=== PATIENT | male | born 1930 | race American Indian/Alaskan Native ===

== ENCOUNTER 2017-04-02 23:57 | Emergency (ER) | payer MEDICARE, OTHER ==
[2017-04-03 00:12] VITALS: BP 123/43
--- NOTE | 2017-04-04 09:22 | EKG ---
04/03/2017- YOKO CROWE - EKG per my reading shows sinus rhythm at a rate of 54 with lateral T-wave inversions. [facility] /[id number]
--- NOTE | 2017-04-25 05:20 | EDM.PDOC ---
ED HPI GENERAL MEDICAL PROBLEM - General Chief Complaint: Neurological Problem Stated Complaint: AMBULANCE Time Seen by Provider: 04/03/17 00:10 Source of Information: Reports: EMS, Family History Limitations: Reports: Altered Mental Status (ED via [facility] with report of left sided weakness . Report family doing CPR on arrival, patient was breathing on own and did have plulse. family noted patient slumped after meal and not talking. ) - History of Present Illness Onset: Today, Sudden Duration: Minutes: Location: Reports: Face (left) Left Shoulder Pain Score (Numeric/FACES): 10 - Related Data Allergies Allergy/AdvReac Type Severity Reaction Status Date / Time diphenhydramine Allergy Mild Confusion Verified 04/03/17 00:07 Home Meds: Home Meds Simvastatin 40 mg PO BEDTIME 10/04/13 [History] Albuterol [Ventolin HFA] 2 puff INH Q4H PRN 09/19/14 [History] Tamsulosin [Flomax] 0.4 mg PO DAILY 11/19/14 [History] Carvedilol [Coreg] 6.2 mg PO BIDMEALS 12/23/15 [History] Furosemide [Lasix] 20 mg PO BIDMEALS 12/23/15 [History] Albuterol [Proventil Neb Soln] 2.5 mg NEB Q6HRRT PRN 02/18/16 [History] Aspirin [Halfprin] 81 mg PO DAILY 02/18/16 [History] Spironolactone [Aldactone] 12.5 mg PO DAILY 02/18/16 [History] hydrALAZINE [Apresoline] 50 mg PO BID 06/25/16 [History] Hydrocodone/Acetaminophen [Hydrocodon-Acetaminophn 10-325] 1 tab PO Q4H PRN 09/19 [History] Loperamide [Imodium] 2 mg PO ASDIRECTED PRN 04/03/17 [History] Melatonin 5 mg PO DAILY PRN 04/03/17 [History] Multivit-Min/FA/Lycopen/Lutein [Centrum Silver Men Tablet] 1 each PO DAILY 04/03 [History] Warfarin Sodium [Coumadin] 3 mg PO DAILY 04/03/17 [History] traZODone HCl [Trazodone HCl] 50 mg PO QPM 04/03/17 [History] Past Medical History HEENT History: Reports: Cataract, Hard of Hearing, Impaired Vision, Other (See Below) Other HEENT History: WEARS CORRECTIVE LENSES; HEARING AIDE TO R SIDE; TOP DENTURE PLATE, BOTTOM PARTIAL Cardiovascular History: Reports: Bypass, CAD, Heart Failure, Heart Valve Replacement, High Cholesterol, Hypertension Other Cardiovascular History: AORTIC STENOSIS; MITRAL INSUFFICIENCY; TRICUSPID INSUFFICIENCY Respiratory History: Reports: Asthma Gastrointestinal History: Reports: Colon Polyp, Diverticulosis, GERD Other Gastrointestinal History: HYPERMOTILITY OF INTESTINE Genitourinary History: Reports: BPH, Chronic Renal Insuffiency, Urinary Incontinence Other Genitourinary History: STAGE III Musculoskeletal History: Reports: Osteoarthritis Other Musculoskeletal History: CARPAL TUNNEL SYNDROME BILAT Neurological History: Reports: TIA Other Neuro History: head bleed s/p fall; DYSPHAGIA Psychiatric History: Reports: Depression Endocrine/Metabolic History: Reports: None Hematologic History: Reports: Anemia, Blood Transfusion(s), Iron Deficiency Other Hematologic History: ANTICOAGULATION MONITORING; MICROALBUMINURIA; HYPERKALEMIA Immunologic History: Reports: None Oncologic (Cancer) History: Reports: Colon Dermatologic History: Reports: None - Infectious Disease History Infectious Disease History: Reports: None - Past Surgical History Head Surgeries/Procedures: Reports: None HEENT Surgical History: Reports: Oral Surgery Cardiovascular Surgical History: Reports: Carotid Endarterectomy, Coronary Artery Bypass, Valve Replacement Respiratory Surgical History: Reports: Tracheostomy GI Surgical History: Reports: Colon, Colonoscopy, Colostomy Musculoskeletal Surgical History: Reports: Shoulder Surgery Social & Family History - Family History HEENT: Reports: Cataract, Glaucoma Cardiac: Reports: Hypertension Musculoskeletal: Reports: Arthritis, Back pain, Chronic Neurological: Reports: CVA Psychiatric: Reports: Other (See Below) Other Psychiatric Family History: ALCOHOLISM Endocrine/Metabolic: Reports: Diabetes, type II Oncologic: Reports: Brain, Lung - Tobacco Use Smoking Status *Q: Current Every Day Smoker Years of Tobacco use: 30 Packs/Tins Daily: 0.5 Used Tobacco, but Quit: Yes Month Tobacco Last Used: 09/14/13 Second Hand Smoke Exposure: No - Caffeine Use Caffeine Use: Reports: Coffee, Soda - Alcohol Use Days Per Week of Alcohol Use: 1 Number of Drinks Per Day: 2 Total Drinks Per Week: 2 - Recreational Drug Use Recreational Drug Use: No - Living Situation & Occupation Living situation: Reports: , with Spouse Occupation: Retired ED ROS GENERAL - Review of Systems Review Of Systems: See Below Constitutional: Reports: Weakness (leftby EMS) HEENT: Reports: No Symptoms Respiratory: Reports: No Symptoms Cardiovascular: Reports: No Symptoms Endocrine: Reports: No Symptoms GI/Abdominal: Reports: No Symptoms Musculoskeletal: Reports: Shoulder Pain Skin: Reports: Lesions (skin tear) Neurological: Reports: Syncope, Weakness (left side) ED EXAM, NEURO - Physical Exam Exam: See Below Exam Limited By: No Limitations General Appearance: Alert Eye Exam: Bilateral Eye: EOMI, Normal Inspection Nose: Normal Inspection Throat/Mouth: Normal Inspection Head Exam: Atraumatic, Normocephalic Neck: Normal Inspection, Full Range of Motion Respiratory/Chest: No Respiratory Distress, Decreased Breath Sounds (shallow), Crackles (bilbaselar) GI/Abdominal: Soft Neurological: Alert, Other (left facial droop on admission, movess all extremities, equal strenght bilaterally). No: Oriented x 3 (person place only ) Back Exam: Normal Inspection Skin Exam: Warm, Dry, Normal Color, Wound/Incision (superficial skin tear to left elbow). No: Intact Course - Vital Signs Last Recorded V/S: Last Vital Signs Temp 96.3 F 04/03/17 00:07 Pulse 56 L 04/03/17 00:07 Resp 18 04/03/17 00:07 BP 123/43 L 04/03/17 00:07 Pulse Ox 91 L 04/03/17 00:07 - Orders/Labs/Meds Labs: Laboratory Tests 04/03/17 04/03/17 04/03/17 Range/Units 00:25 00:25 00:25 WBC 5.9 (5.0-10.0) 10^3/uL RBC 3.42 L (4.6-6.2) 10^6/uL Hgb 9.8 L (14.0-18.0) g/dL Hct 30.9 L (40.0-54.0) % MCV 90.4 (80-100) fL MCH 28.7 (27.0-34.0) pg MCHC 31.7 L (33.0-35.0) g/dL Plt Count 136 L (150-450) 10^3/uL Neut % (Auto) 67.1 (42.2-75.2) % Lymph % (Auto) 17.7 L (20.5-50.1) % [place] % (Auto) 9.7 H (2-8) % Eos % (Auto) 5.3 H (1.0-3.0) % Baso % (Auto) 0.2 (0.0-1.0) % PT 20.1 H (9.0-12.0) SEC INR 2.0 H (0.9-1.2) Sodium 137 (135-145) mmol/L Potassium 3.3 L (3.6-5.0) mmol/L Chloride 103 (101-111) mmol/L Carbon Dioxide 24.0 (21.0-31.0) mmol/L Anion Gap 13.3 BUN 21 H (7-18) mg/dL Creatinine 1.6 H (0.6-1.3) mg/dL Est Cr Clr Drug Dosing 30.41 mL/min Estimated GFR (MDRD) 41 BUN/Creatinine Ratio 13.12 Glucose 121 H (74-105) mg/dL Lactic Acid (0.5-2.2) mmol/L Calcium 8.1 L (8.4-10.2) mg/dl Total Bilirubin 0.6 (0.2-1.0) mg/dL AST 44 H (10-42) IU/L ALT 19 (10-60) IU/L Alkaline Phosphatase 88 (42-121) IU/L CK-MB (CK-2) (0.4-4.7) ng/mL Troponin I 1.83 H* (0.00-0.02) ng/ml B-Natriuretic Peptide (0-100) pg/ml Total Protein 6.4 L (6.7-8.2) g/dl Albumin 3.1 L (3.2-5.5) g/dl Globulin 3.3 Albumin/Globulin Ratio 0.94 Amylase 41 (28-100) U/L Lipase 24 (22-51) U/L Urine Color (YELLOW) Urine Appearance (CLEAR) Urine pH (5.0-9.0) Ur Specific [place] (1.005-1.030) Urine Protein (NEGATIVE) Urine Glucose (UA) (NEGATIVE) Urine Ketones (NEGATIVE) Urine Occult Blood (NEGATIVE) Urine Nitrite (NEGATIVE) Urine Bilirubin (NEGATIVE) Urine Urobilinogen (0.2-1.0) mg/dL Ur Leukocyte Esterase (NEGATIVE) Urine RBC /HPF Urine WBC (0-5/HPF) /HPF Ur Epithelial Cells /HPF Urine Bacteria (0-FEW/HPF) /HPF 04/03/17 04/03/17 04/03/17 Range/Units 00:25 00:25 00:25 WBC (5.0-10.0) 10^3/uL RBC (4.6-6.2) 10^6/uL Hgb (14.0-18.0) g/dL Hct (40.0-54.0) % MCV (80-100) fL MCH (27.0-34.0) pg MCHC (33.0-35.0) g/dL Plt Count (150-450) 10^3/uL Neut % (Auto) (42.2-75.2) % Lymph % (Auto) (20.5-50.1) % [place] % (Auto) (2-8) % Eos % (Auto) (1.0-3.0) % Baso % (Auto) (0.0-1.0) % PT (9.0-12.0) SEC INR (0.9-1.2) Sodium (135-145) mmol/L Potassium (3.6-5.0) mmol/L Chloride (101-111) mmol/L Carbon Dioxide (21.0-31.0) mmol/L Anion Gap BUN (7-18) mg/dL Creatinine (0.6-1.3) mg/dL Est Cr Clr Drug Dosing mL/min Estimated GFR (MDRD) BUN/Creatinine Ratio Glucose (74-105) mg/dL Lactic Acid 1.1 (0.5-2.2) mmol/L Calcium (8.4-10.2) mg/dl Total Bilirubin (0.2-1.0) mg/dL AST (10-42) IU/L ALT (10-60) IU/L Alkaline Phosphatase (42-121) IU/L CK-MB (CK-2) 6.00 H (0.4-4.7) ng/mL Troponin I (0.00-0.02) ng/ml B-Natriuretic Peptide 547 H (0-100) pg/ml Total Protein (6.7-8.2) g/dl Albumin (3.2-5.5) g/dl Globulin Albumin/Globulin Ratio Amylase (28-100) U/L Lipase (22-51) U/L Urine Color (YELLOW) Urine Appearance (CLEAR) Urine pH (5.0-9.0) Ur Specific [place] (1.005-1.030) Urine Protein (NEGATIVE) Urine Glucose (UA) (NEGATIVE) Urine Ketones (NEGATIVE) Urine Occult Blood (NEGATIVE) Urine Nitrite (NEGATIVE) Urine Bilirubin (NEGATIVE) Urine Urobilinogen (0.2-1.0) mg/dL Ur Leukocyte Esterase (NEGATIVE) Urine RBC /HPF Urine WBC (0-5/HPF) /HPF Ur Epithelial Cells /HPF Urine Bacteria (0-FEW/HPF) /HPF 04/03/17 Range/Units 01:26 WBC (5.0-10.0) 10^3/uL RBC (4.6-6.2) 10^6/uL Hgb (14.0-18.0) g/dL Hct (40.0-54.0) % MCV (80-100) fL MCH (27.0-34.0) pg MCHC (33.0-35.0) g/dL Plt Count (150-450) 10^3/uL Neut % (Auto) (42.2-75.2) % Lymph % (Auto) (20.5-50.1) % [place] % (Auto) (2-8) % Eos % (Auto) (1.0-3.0) % Baso % (Auto) (0.0-1.0) % PT (9.0-12.0) SEC INR (0.9-1.2) Sodium (135-145) mmol/L Potassium (3.6-5.0) mmol/L Chloride (101-111) mmol/L Carbon Dioxide (21.0-31.0) mmol/L Anion Gap BUN (7-18) mg/dL Creatinine (0.6-1.3) mg/dL Est Cr Clr Drug Dosing mL/min Estimated GFR (MDRD) BUN/Creatinine Ratio Glucose (74-105) mg/dL Lactic Acid (0.5-2.2) mmol/L Calcium (8.4-10.2) mg/dl Total Bilirubin (0.2-1.0) mg/dL AST (10-42) IU/L ALT (10-60) IU/L Alkaline Phosphatase (42-121) IU/L CK-MB (CK-2) (0.4-4.7) ng/mL Troponin I (0.00-0.02) ng/ml B-Natriuretic Peptide (0-100) pg/ml Total Protein (6.7-8.2) g/dl Albumin (3.2-5.5) g/dl Globulin Albumin/Globulin Ratio Amylase (28-100) U/L Lipase (22-51) U/L Urine Color Yellow (YELLOW) Urine Appearance Clear (CLEAR) Urine pH 6.0 (5.0-9.0) Ur Specific [place] 1.015 (1.005-1.030) Urine Protein 100 H (NEGATIVE) Urine Glucose (UA) Negative (NEGATIVE) Urine Ketones Negative (NEGATIVE) Urine Occult Blood Negative (NEGATIVE) Urine Nitrite Negative (NEGATIVE) Urine Bilirubin Negative (NEGATIVE) Urine Urobilinogen 0.2 (0.2-1.0) mg/dL Ur Leukocyte Esterase Negative (NEGATIVE) Urine RBC 0-5 /HPF Urine WBC 0-5 (0-5/HPF) /HPF Ur Epithelial Cells Few /HPF Urine Bacteria Few (0-FEW/HPF) /HPF - Radiology Interpretation Free Text/Narrative:: CXR ild pulmonary edema, CT head negative for acute process Departure - Departure Time of Disposition: 02:00 Disposition: DC/Tfer to Acute Hospital 02 Condition: Undetermined Clinical Impression: Acute [id number] myocardial infarction, Elevated troponin, Elevated brain natriuretic peptide (BNP) level, CKD (chronic kidney disease) stage 3, GFR 30-59 ml/min, Skin tear, Hypokalemia Acute CHF (congestive heart failure) Qualifiers: Congestive heart failure type: systolic Qualified Code(s): I50.21 - Acute systolic (congestive) heart failure - Discharge Information Forms: ED Department Discharge
== END 2017-04-03 01:58 ==
LOC: DL.ED 23:57
DX: I21.4 Non-ST elevation (NSTEMI) myocardial infarction (principal); I13.0 Hypertensive heart and chronic kidney disease with heart failure and stage 1 through stage 4 chronic kidney disease, or unspecified chronic kidney disease; I50.21 Acute systolic (congestive) heart failure; N18.3 Chronic kidney disease, stage 3 (moderate); E87.6 Hypokalemia; R79.89 Other specified abnormal findings of blood chemistry; H54.7 Unspecified visual loss; Z95.1 Presence of aortocoronary bypass graft; I25.10 Atherosclerotic heart disease of native coronary artery without angina pectoris; K21.9 Gastro-esophageal reflux disease without esophagitis; J45.909 Unspecified asthma, uncomplicated; F17.210 Nicotine dependence, cigarettes, uncomplicated; F32.9 Major depressive disorder, single episode, unspecified; Z86.2 Personal history of diseases of the blood and blood-forming organs and certain disorders involving the immune mechanism; Z98.890 Other specified postprocedural states; Z90.49 Acquired absence of other specified parts of digestive tract; Z88.8 Allergy status to other drugs, medicaments and biological substances; Z79.899 Other long term (current) drug therapy
CPT/HCPCS: 36415; 70450; 71010; 80053; 81001; 82150; 82553; 83605; 83690; 83880; 84484; 85025; 85610; 93005; 93010; 99285

== ENCOUNTER 2017-05-10 18:18 | Emergency (ER) | payer MEDICARE, OTHER ==
[2017-05-10] MEDS ORDERED: Sodium Chloride 0.9% 10 ML Syringe FLUSH PRN (18:44)
[2017-05-10 18:47] VITALS: BP 137/58
--- NOTE | 2017-05-10 19:38 | EDM.PDOC ---
ED HPI GENERAL MEDICAL PROBLEM - General Chief Complaint: Respiratory Problem Stated Complaint: WEAK,COUGHING,SOB, [id number] Time Seen by Provider: 05/10/17 19:25 Source of Information: Reports: Patient History Limitations: Reports: No Limitations - History of Present Illness INITIAL COMMENTS - FREE TEXT/NARRATIVE: This 86 yo male patient was brought to the ED by family due to not feeling well. When the patient was asked what brought him to the ED, the patient responded "everything". Follow-up questions revealed that the patient has a headache and feels tired. The patient was seen by Dr. Terrell yesterday for similar symptoms and the patient was seen in the clinic last week and diagnosed with pneumonia. The patient reports he has been taking the antibiotics as prescribed, but continues to feel sick. Onset Date: 05/02/17 Duration: Constant Location: Reports: Generalized Quality: Reports: Dull Severity: Moderate Improves with: Reports: None Worsens with: Reports: None Associated Symptoms: Reports: Cough, Other (headache) Treatments LOCAL COORDINATOR: Reports: Other Medication(s) (Meherrin, Tramadol, Prometh with codeine, Doxycycline) - Related Data Allergies Allergy/AdvReac Type Severity Reaction Status Date / Time diphenhydramine Allergy Mild Confusion Verified 05/10/17 18:37 Home Meds: Home Meds Simvastatin 40 mg PO BEDTIME 10/04/13 [History] Albuterol [Ventolin HFA] 2 puff INH Q4H PRN 09/19/14 [History] Tamsulosin [Flomax] 0.4 mg PO DAILY 11/19/14 [History] Carvedilol [Coreg] 6.2 mg PO BIDMEALS 12/23/15 [History] Furosemide [Lasix] 20 mg PO BIDMEALS 12/23/15 [History] Albuterol [Proventil Neb Soln] 2.5 mg NEB Q6HRRT PRN 02/18/16 [History] Aspirin [Halfprin] 81 mg PO DAILY 02/18/16 [History] Spironolactone [Aldactone] 12.5 mg PO DAILY 02/18/16 [History] hydrALAZINE [Apresoline] 50 mg PO BID 06/25/16 [History] Hydrocodone/Acetaminophen [Hydrocodon-Acetaminophn 10-325] 1 tab PO Q4H PRN 09/19 [History] Loperamide [Imodium] 2 mg PO ASDIRECTED PRN 04/03/17 [History] Melatonin 5 mg PO DAILY PRN 04/03/17 [History] Multivit-Min/FA/Lycopen/Lutein [Centrum Silver Men Tablet] 1 each PO DAILY 04/03 [History] Warfarin Sodium [Coumadin] 3 mg PO DAILY 04/03/17 [History] traZODone HCl [Trazodone HCl] 50 mg PO QPM 04/03/17 [History] Past Medical History HEENT History: Reports: Cataract, Hard of Hearing, Impaired Vision, Other (See Below) Other HEENT History: WEARS CORRECTIVE LENSES; HEARING AIDE TO R SIDE; TOP DENTURE PLATE, BOTTOM PARTIAL Cardiovascular History: Reports: Bypass, CAD, Heart Failure, Heart Valve Replacement, High Cholesterol, Hypertension, Pacemaker Other Cardiovascular History: AORTIC STENOSIS; MITRAL INSUFFICIENCY; TRICUSPID INSUFFICIENCY Respiratory History: Reports: Asthma, Pneumonia, Recurrent Gastrointestinal History: Reports: Colon Polyp, Diverticulosis, GERD Other Gastrointestinal History: HYPERMOTILITY OF INTESTINE Genitourinary History: Reports: BPH, Chronic Renal Insuffiency, Urinary Incontinence Other Genitourinary History: STAGE III Musculoskeletal History: Reports: Osteoarthritis Other Musculoskeletal History: CARPAL TUNNEL SYNDROME BILAT Neurological History: Reports: TIA Other Neuro History: head bleed s/p fall; DYSPHAGIA Psychiatric History: Reports: Depression Endocrine/Metabolic History: Reports: None Hematologic History: Reports: Anemia, Blood Transfusion(s), Iron Deficiency Other Hematologic History: ANTICOAGULATION MONITORING; MICROALBUMINURIA; HYPERKALEMIA Immunologic History: Reports: None Oncologic (Cancer) History: Reports: Colon Dermatologic History: Reports: None - Infectious Disease History Infectious Disease History: Reports: None - Past Surgical History Head Surgeries/Procedures: Reports: None HEENT Surgical History: Reports: Oral Surgery Cardiovascular Surgical History: Reports: Carotid Endarterectomy, Coronary Artery Bypass, Valve Replacement Respiratory Surgical History: Reports: Tracheostomy GI Surgical History: Reports: Colon, Colonoscopy, Colostomy Musculoskeletal Surgical History: Reports: Shoulder Surgery Social & Family History - Family History Family Medical History: Noncontributory HEENT: Reports: Cataract, Glaucoma Cardiac: Reports: Hypertension Musculoskeletal: Reports: Arthritis, Back pain, Chronic Neurological: Reports: CVA Psychiatric: Reports: Other (See Below) Other Psychiatric Family History: ALCOHOLISM Endocrine/Metabolic: Reports: Diabetes, type II Oncologic: Reports: Brain, Lung - Tobacco Use Smoking Status *Q: Current Every Day Smoker Years of Tobacco use: 20 Packs/Tins Daily: 1 Used Tobacco, but Quit: Yes Month Tobacco Last Used: 09/14/13 Second Hand Smoke Exposure: No - Caffeine Use Caffeine Use: Reports: None - Alcohol Use Days Per Week of Alcohol Use: 1 Number of Drinks Per Day: 2 Total Drinks Per Week: 2 - Recreational Drug Use Recreational Drug Use: No - Living Situation & Occupation Living situation: Reports: , with Spouse Occupation: Retired ED ROS GENERAL - Review of Systems Review Of Systems: ROS reveals no pertinent complaints other than HPI. ED EXAM, GENERAL - Physical Exam Exam: See Below Exam Limited By: No Limitations General Appearance: Alert, WD/WN, Moderate Distress Eye Exam: Bilateral Eye: EOMI, Normal Inspection, PERRL Ears: Normal External Exam, Normal Canal, Hearing Grossly Normal, Normal TMs Nose: Normal Inspection, Normal Mucosa, No Blood Throat/Mouth: Normal Inspection, Normal Lips, Normal Teeth, Normal Gums, Normal Oropharynx, Normal Voice, No Airway Compromise Head: Atraumatic, Normocephalic Neck: Normal Inspection, Supple, Non-Tender, Full Range of Motion Respiratory/Chest: No Respiratory Distress, Chest Non-Tender, Decreased Breath Sounds (due to lack of effort) Cardiovascular: Normal Peripheral Pulses, Regular Rate, Rhythm, No Edema, No Gallop, No JVD, No Murmur, No Rub GI/Abdominal: Normal Bowel Sounds, Soft, Non-Tender, No Organomegaly, No Distention, No Abnormal Bruit, No Mass (Male) Exam: Deferred Rectal (Males) Exam: Deferred Back Exam: Normal Inspection, Full Range of Motion, NT Extremities: Normal Inspection, Normal Range of Motion, Non-Tender, Normal Capillary Refill, No Pedal Edema Neurological: Alert, Oriented, CN II-XII Intact, Normal Cognition, Normal Gait, Normal Reflexes, No Motor/Sensory Deficits Psychiatric: Depressed Mood, Flat Affect Skin Exam: Warm, Dry, Intact, Normal Color, No Rash Lymphatic: No Adenopathy Course - Vital Signs Last Recorded V/S: Last Vital Signs Temp 36.3 C 05/10/17 18:41 Pulse 69 05/10/17 18:41 Resp 16 05/10/17 18:41 BP 137/58 L 05/10/17 18:41 Pulse Ox 98 05/10/17 18:41 - Orders/Labs/Meds Orders: Active Orders 24 hr Category Date Time Status EKG Documentation Completion [RC] STAT Care 05/10/17 18:45 Active Peripheral IV Care [RC] . DIRECTED Care 05/10/17 18:46 Active CULTURE BLOOD [BC] Stat Lab 05/10/17 18:55 Results CULTURE BLOOD [BC] Stat Lab 05/10/17 19:00 Results [facility] [REF] Urgent Lab 05/10/17 20:07 Ordered Sodium Chloride 0.9% [Normal Saline] 500 ml Med 05/10/17 19:50 Active IV .BOLUS Sodium Chloride 0.9% [Saline Flush] Med 05/10/17 18:44 Active 10 ml FLUSH ASDIRECTED PRN Blood Culture x2 Reflex Set [OM.PC] Stat Oth 05/10/17 18:45 Ordered Peripheral IV Insertion Adult [OM.PC] Stat Oth 05/10/17 18:45 Ordered Medication Orders Sodium Chloride (Normal Saline) 500 mls @ 999 mls/hr IV .BOLUS NADINE Last Admin: 05/10/17 20:01 Dose: 999 mls/hr Sodium Chloride (Saline Flush) 10 ml FLUSH ASDIRECTED PRN PRN Reason: Keep Vein Open Last Admin: 05/10/17 20:19 Dose: 10 ml Labs: Laboratory Tests 05/10/17 05/10/17 05/10/17 Range/Units 19:00 19:00 19:00 WBC 6.6 (5.0-10.0) 10^3/uL RBC 3.97 L (4.6-6.2) 10^6/uL Hgb 11.8 L (14.0-18.0) g/dL Hct 35.1 L (40.0-54.0) % MCV 88.4 (80-100) fL MCH 29.7 (27.0-34.0) pg MCHC 33.6 (33.0-35.0) g/dL Plt Count 179 (150-450) 10^3/uL Neut % (Auto) 65.2 (42.2-75.2) % Lymph % (Auto) 21.7 (20.5-50.1) % [place] % (Auto) 10.8 H (2-8) % Eos % (Auto) 2.1 (1.0-3.0) % Baso % (Auto) 0.2 (0.0-1.0) % Sodium 134 L (135-145) mmol/L Potassium 3.5 L (3.6-5.0) mmol/L Chloride 98 L (101-111) mmol/L Carbon Dioxide 22.0 (21.0-31.0) mmol/L Anion Gap 17.5 BUN 45 H (7-18) mg/dL Creatinine 2.2 H (0.6-1.3) mg/dL Est Cr Clr Drug Dosing 22.01 mL/min Estimated GFR (MDRD) 28 BUN/Creatinine Ratio 20.45 Glucose 91 (74-105) mg/dL Lactic Acid 0.9 (0.5-2.2) mmol/L Calcium 8.8 (8.4-10.2) mg/dl Total Bilirubin 0.9 (0.2-1.0) mg/dL AST 54 H (10-42) IU/L ALT 29 (10-60) IU/L Alkaline Phosphatase 109 (42-121) IU/L Total Protein 6.5 L (6.7-8.2) g/dl Albumin 3.2 (3.2-5.5) g/dl Globulin 3.3 Albumin/Globulin Ratio 0.97 Urine Color (YELLOW) Urine Appearance (CLEAR) Urine pH (5.0-9.0) Ur Specific [place] (1.005-1.030) Urine Protein (NEGATIVE) Urine Glucose (UA) (NEGATIVE) Urine Ketones (NEGATIVE) Urine Occult Blood (NEGATIVE) Urine Nitrite (NEGATIVE) Urine Bilirubin (NEGATIVE) Urine Urobilinogen (0.2-1.0) mg/dL Ur Leukocyte Esterase (NEGATIVE) Urine RBC /HPF Urine WBC (0-5/HPF) /HPF Ur Epithelial Cells /HPF Amorphous Sediment (0/HPF) /HPF Urine Bacteria (0-FEW/HPF) /HPF 05/10/17 Range/Units 19:50 WBC (5.0-10.0) 10^3/uL RBC (4.6-6.2) 10^6/uL Hgb (14.0-18.0) g/dL Hct (40.0-54.0) % MCV (80-100) fL MCH (27.0-34.0) pg MCHC (33.0-35.0) g/dL Plt Count (150-450) 10^3/uL Neut % (Auto) (42.2-75.2) % Lymph % (Auto) (20.5-50.1) % [place] % (Auto) (2-8) % Eos % (Auto) (1.0-3.0) % Baso % (Auto) (0.0-1.0) % Sodium (135-145) mmol/L Potassium (3.6-5.0) mmol/L Chloride (101-111) mmol/L Carbon Dioxide (21.0-31.0) mmol/L Anion Gap BUN (7-18) mg/dL Creatinine (0.6-1.3) mg/dL Est Cr Clr Drug Dosing mL/min Estimated GFR (MDRD) BUN/Creatinine Ratio Glucose (74-105) mg/dL Lactic Acid (0.5-2.2) mmol/L Calcium (8.4-10.2) mg/dl Total Bilirubin (0.2-1.0) mg/dL AST (10-42) IU/L ALT (10-60) IU/L Alkaline Phosphatase (42-121) IU/L Total Protein (6.7-8.2) g/dl Albumin (3.2-5.5) g/dl Globulin Albumin/Globulin Ratio Urine Color Yellow (YELLOW) Urine Appearance Clear (CLEAR) Urine pH 5.0 (5.0-9.0) Ur Specific [place] <= 1.005 (1.005-1.030) Urine Protein Negative (NEGATIVE) Urine Glucose (UA) Negative (NEGATIVE) Urine Ketones Negative (NEGATIVE) Urine Occult Blood Negative (NEGATIVE) Urine Nitrite Negative (NEGATIVE) Urine Bilirubin Negative (NEGATIVE) Urine Urobilinogen 0.2 (0.2-1.0) mg/dL Ur Leukocyte Esterase Negative (NEGATIVE) Urine RBC Not seen /HPF Urine WBC 0-5 (0-5/HPF) /HPF Ur Epithelial Cells Rare /HPF Amorphous Sediment Few (0/HPF) /HPF Urine Bacteria Few (0-FEW/HPF) /HPF Meds: Medications Generic Name Dose Route Start Last Admin Trade Name Freq PRN Reason Stop Dose Admin Sodium Chloride 500 mls @ 999 mls/hr 05/10/17 19:50 05/10/17 20:01 Normal Saline IV 999 mls/hr .BOLUS NADINE Administration Sodium Chloride 10 ml 05/10/17 18:44 05/10/17 20:19 Saline Flush FLUSH 10 ml ASDIRECTED PRN Administration Keep Vein Open Discontinued Medications Generic Name Dose Route Start Last Admin Trade Name Venu PRN Reason Stop Dose Admin Methylprednisolone Sodium Succinate 40 mg 05/10/17 20:04 05/10/17 20:11 Solu-Medrol IVPUSH 05/10/17 20:05 40 mg ONETIME ONE Administration Departure - Departure Time of Disposition: 21:07 Disposition: Home, Self-Care 01 Condition: Fair Clinical Impression: Generalized weakness - Discharge Information Forms: ED Department Discharge Care Plan Goals: The patient and family were advised of the examination, lab and x-ray results during the visit. The patient was given IV fluids and IV SoluMedrol while in the ED. The patient was encouraged to eat small frequent meals on a regular basis to increase his strength. If the patient has any additional symptoms or concerns, the patient should follow-up with with his primary care facility or return to the emergency department. - My Orders Last 24 Hours: My Active Orders 05/10/17 19:50 Sodium Chloride 0.9% [Normal Saline] 500 ml IV .BOLUS 05/10/17 20:07 [facility] [REF] Urgent - Assessment/Plan Last 24 Hours: My Active Orders 05/10/17 19:50 Sodium Chloride 0.9% [Normal Saline] 500 ml IV .BOLUS 05/10/17 20:07 [facility] [REF] Urgent
[2017-05-10] MEDS ORDERED: Sodium Chloride 0.9% 500 ML IV SCH (19:50)
[2017-05-10] MEDS ORDERED: methylPREDNISolone Sodium Succinate 40 MG/1 ML SDV IVPUSH ONE (20:04)
--- NOTE | 2017-05-13 13:10 | EKG ---
05/10/2017 - YOKO CROWE - A 12-lead EKG shows normal sinus rhythm with no significant ST elevation or ST depression noted on this 12-lead EKG, except for nonspecific T-wave changes noted on lead aVL. Evidence of first-degree AV block with the [place] interval of 220. [facility] /[id number]
== END 2017-05-10 21:29 | disposition home or self-care (01) ==
LOC: DL.ED 18:18
DX: R53.1 Weakness (principal); I25.10 Atherosclerotic heart disease of native coronary artery without angina pectoris; I13.0 Hypertensive heart and chronic kidney disease with heart failure and stage 1 through stage 4 chronic kidney disease, or unspecified chronic kidney disease; N18.3 Chronic kidney disease, stage 3 (moderate); I50.9 Heart failure, unspecified; M19.90 Unspecified osteoarthritis, unspecified site; F17.210 Nicotine dependence, cigarettes, uncomplicated; Z86.73 Personal history of transient ischemic attack (TIA), and cerebral infarction without residual deficits; Z86.2 Personal history of diseases of the blood and blood-forming organs and certain disorders involving the immune mechanism; Z98.890 Other specified postprocedural states; Z95.1 Presence of aortocoronary bypass graft; Z88.8 Allergy status to other drugs, medicaments and biological substances; Z79.899 Other long term (current) drug therapy; Z95.5 Presence of coronary angioplasty implant and graft; Z79.01 Long term (current) use of anticoagulants
CPT/HCPCS: 36415; 71020; 80053; 81001; 83605; 85025; 86788; 87040; 93005; 93010; 96361; 96374; 99285; J2920; J7040; J7050; 99284

== ENCOUNTER 2017-05-11 23:31 | Observation (INO) | payer MEDICARE, OTHER ==
--- NOTE | 2017-05-11 23:57 | EDM.PDOC ---
ED HPI GENERAL MEDICAL PROBLEM - General Chief Complaint: General Stated Complaint: AMBULANCE Time Seen by Provider: 05/11/17 23:52 Source of Information: Reports: EMS, Family History Limitations: Reports: No Limitations - History of Present Illness INITIAL COMMENTS - FREE TEXT/NARRATIVE: This 86 yo male patient was brought to the ED by [facility] due to the patient not responding. EMS reports they were initially called to the house for CPR in progress. Upon EMS arrival, the patient was seated in a chair. When they sat him back, the patient started to respond to them. The patient's daughter called the patient's son to report that the patient was not breathing and did not have a pulse, thus called the ambulance. The patient was seen in the ED last night for generalized weakness, was seen in the Clinic this week by Dr. Terrell, and last week in the Clinic by other providers, but does not seem to be getting any better. The patient reports he has not been eating. The family reports he had several syncopial episodes in the past and was sent to [facility] in [place] to have a pacemaker placed. Onset: Today, Sudden Duration: Resolved Prior to Arrival Location: Reports: Generalized Quality: Reports: Other Severity: Moderate Improves with: Reports: None Worsens with: Reports: None Associated Symptoms: Reports: Syncope - Related Data Allergies Allergy/AdvReac Type Severity Reaction Status Date / Time diphenhydramine Allergy Mild Confusion Verified 05/10/17 18:37 Home Meds: Home Meds Simvastatin 40 mg PO BEDTIME 10/04/13 [History] Albuterol [Ventolin HFA] 2 puff INH Q4H PRN 09/19/14 [History] Tamsulosin [Flomax] 0.4 mg PO DAILY 11/19/14 [History] Carvedilol [Coreg] 6.2 mg PO BIDMEALS 12/23/15 [History] Furosemide [Lasix] 20 mg PO BIDMEALS 12/23/15 [History] Albuterol [Proventil Neb Soln] 2.5 mg NEB Q6HRRT PRN 02/18/16 [History] Aspirin [Halfprin] 81 mg PO DAILY 02/18/16 [History] Spironolactone [Aldactone] 12.5 mg PO DAILY 02/18/16 [History] hydrALAZINE [Apresoline] 50 mg PO BID 06/25/16 [History] Hydrocodone/Acetaminophen [Hydrocodon-Acetaminophn 10-325] 1 tab PO Q4H PRN 09/19 [History] Loperamide [Imodium] 2 mg PO ASDIRECTED PRN 04/03/17 [History] Melatonin 5 mg PO DAILY PRN 04/03/17 [History] Multivit-Min/FA/Lycopen/Lutein [Centrum Silver Men Tablet] 1 each PO DAILY 04/03 [History] Warfarin Sodium [Coumadin] 3 mg PO DAILY 04/03/17 [History] traZODone HCl [Trazodone HCl] 50 mg PO QPM 04/03/17 [History] Past Medical History HEENT History: Reports: Cataract, Hard of Hearing, Impaired Vision, Other (See Below) Other HEENT History: WEARS CORRECTIVE LENSES; HEARING AIDE TO R SIDE; TOP DENTURE PLATE, BOTTOM PARTIAL Cardiovascular History: Reports: Bypass, CAD, Heart Failure, Heart Valve Replacement, High Cholesterol, Hypertension, Pacemaker Other Cardiovascular History: AORTIC STENOSIS; MITRAL INSUFFICIENCY; TRICUSPID INSUFFICIENCY Respiratory History: Reports: Asthma, Pneumonia, Recurrent Gastrointestinal History: Reports: Colon Polyp, Diverticulosis, GERD Other Gastrointestinal History: HYPERMOTILITY OF INTESTINE Genitourinary History: Reports: BPH, Chronic Renal Insuffiency, Urinary Incontinence Other Genitourinary History: STAGE III Musculoskeletal History: Reports: Osteoarthritis Other Musculoskeletal History: CARPAL TUNNEL SYNDROME BILAT Neurological History: Reports: TIA Other Neuro History: head bleed s/p fall; DYSPHAGIA Psychiatric History: Reports: Depression Endocrine/Metabolic History: Reports: None Hematologic History: Reports: Anemia, Blood Transfusion(s), Iron Deficiency Other Hematologic History: ANTICOAGULATION MONITORING; MICROALBUMINURIA; HYPERKALEMIA Immunologic History: Reports: None Oncologic (Cancer) History: Reports: Colon Dermatologic History: Reports: None - Infectious Disease History Infectious Disease History: Reports: None - Past Surgical History Head Surgeries/Procedures: Reports: None HEENT Surgical History: Reports: Oral Surgery Cardiovascular Surgical History: Reports: Carotid Endarterectomy, Coronary Artery Bypass, Valve Replacement Respiratory Surgical History: Reports: Tracheostomy GI Surgical History: Reports: Colon, Colonoscopy, Colostomy Musculoskeletal Surgical History: Reports: Shoulder Surgery Social & Family History - Family History Family Medical History: Noncontributory HEENT: Reports: Cataract, Glaucoma Cardiac: Reports: Hypertension Musculoskeletal: Reports: Arthritis, Back pain, Chronic Neurological: Reports: CVA Psychiatric: Reports: Other (See Below) Other Psychiatric Family History: ALCOHOLISM Endocrine/Metabolic: Reports: Diabetes, type II Oncologic: Reports: Brain, Lung - Tobacco Use Smoking Status *Q: Current Every Day Smoker Years of Tobacco use: 20 Packs/Tins Daily: 1 Used Tobacco, but Quit: Yes Month Tobacco Last Used: 09/14/13 Second Hand Smoke Exposure: No - Caffeine Use Caffeine Use: Reports: None - Alcohol Use Days Per Week of Alcohol Use: 1 Number of Drinks Per Day: 2 Total Drinks Per Week: 2 - Recreational Drug Use Recreational Drug Use: No - Living Situation & Occupation Living situation: Reports: , with Spouse Occupation: Retired ED ROS GENERAL - Review of Systems Review Of Systems: ROS reveals no pertinent complaints other than HPI. ED EXAM, GENERAL - Physical Exam Exam: See Below Exam Limited By: No Limitations General Appearance: Alert, WD/WN, No Apparent Distress, Thin Eye Exam: Bilateral Eye: EOMI, Normal Inspection, PERRL Ears: Normal External Exam, Normal Canal, Hearing Grossly Normal, Normal TMs Nose: Normal Inspection, Normal Mucosa, No Blood Throat/Mouth: Normal Inspection, Normal Lips, Normal Teeth, Normal Gums, Normal Oropharynx, Normal Voice, No Airway Compromise Head: Atraumatic, Normocephalic Neck: Normal Inspection, Supple, Non-Tender, Full Range of Motion Respiratory/Chest: No Respiratory Distress, Lungs Clear, Normal Breath Sounds, No Accessory Muscle Use, Chest Non-Tender Cardiovascular: Normal Peripheral Pulses, Regular Rate, Rhythm, No Edema, No Gallop, No JVD, No Murmur, No Rub GI/Abdominal: Normal Bowel Sounds, Tender (left upper quadrant ) (Male) Exam: Deferred Rectal (Males) Exam: Deferred Back Exam: Normal Inspection, Full Range of Motion, NT Extremities: Normal Inspection, Normal Range of Motion, Non-Tender, Normal Capillary Refill, No Pedal Edema Neurological: Alert, Oriented, CN II-XII Intact, Normal Cognition, Normal Gait, Normal Reflexes, No Motor/Sensory Deficits Psychiatric: Normal Affect, Normal Mood Skin Exam: Warm, Dry, Intact, Normal Color, No Rash Lymphatic: No Adenopathy Course - Vital Signs Last Recorded V/S: Last Vital Signs Temp 36.1 C 05/11/17 23:36 Pulse 60 05/11/17 23:36 Resp 20 05/11/17 23:36 BP 134/55 L 05/11/17 23:36 Pulse Ox 96 05/11/17 23:36 - Orders/Labs/Meds Orders: Active Orders 24 hr Category Date Time Status EKG Documentation Completion [RC] URGENT Care 05/11/17 23:49 Active Chest 1V Frontal [CR] Urgent Exams 05/12/17 00:05 Taken Labs: Laboratory Tests 05/12/17 05/12/17 05/12/17 Range/Units 00:05 00:05 00:05 WBC 6.5 (5.0-10.0) 10^3/uL RBC 3.88 L (4.6-6.2) 10^6/uL Hgb 11.4 L (14.0-18.0) g/dL Hct 34.1 L (40.0-54.0) % MCV 87.9 (80-100) fL MCH 29.4 (27.0-34.0) pg MCHC 33.4 (33.0-35.0) g/dL Plt Count 160 (150-450) 10^3/uL Neut % (Auto) 65.6 (42.2-75.2) % Lymph % (Auto) 22.6 (20.5-50.1) % Conway % (Auto) 11.0 H (2-8) % Eos % (Auto) 0.6 L (1.0-3.0) % Baso % (Auto) 0.2 (0.0-1.0) % Sodium (135-145) mmol/L Potassium (3.6-5.0) mmol/L Chloride (101-111) mmol/L Carbon Dioxide (21.0-31.0) mmol/L Anion Gap BUN (7-18) mg/dL Creatinine (0.6-1.3) mg/dL Est Cr Clr Drug Dosing Estimated GFR (MDRD) BUN/Creatinine Ratio Glucose (74-105) mg/dL Calcium (8.4-10.2) mg/dl Magnesium 1.6 L (1.8-2.5) mg/dL Total Bilirubin (0.2-1.0) mg/dL AST (10-42) IU/L ALT (10-60) IU/L Alkaline Phosphatase (42-121) IU/L Ammonia 14 (11-35) umol/L Troponin I (0.00-0.02) ng/ml B-Natriuretic Peptide 263 H (0-100) pg/ml Total Protein (6.7-8.2) g/dl Albumin (3.2-5.5) g/dl Globulin Albumin/Globulin Ratio Amylase 56 (28-100) U/L Lipase 41 (22-51) U/L Urine Color (YELLOW) Urine Appearance (CLEAR) Urine pH (5.0-9.0) Ur Specific [place] (1.005-1.030) Urine Protein (NEGATIVE) Urine Glucose (UA) (NEGATIVE) Urine Ketones (NEGATIVE) Urine Occult Blood (NEGATIVE) Urine Nitrite (NEGATIVE) Urine Bilirubin (NEGATIVE) Urine Urobilinogen (0.2-1.0) mg/dL Ur Leukocyte Esterase (NEGATIVE) Urine RBC /HPF Urine WBC (0-5/HPF) /HPF Ur Epithelial Cells /HPF Amorphous Sediment (0/HPF) /HPF Urine Bacteria (0-FEW/HPF) /HPF Urine Opiates Screen (NEGATIVE) Ur Oxycodone Screen (NEGATIVE) Urine Methadone Screen (NEGATIVE) Ur Barbiturates Screen (NEGATIVE) U Tricyclic Antidepress (NEGATIVE) Ur Phencyclidine Scrn (NEGATIVE) Ur Amphetamine Screen (NEGATIVE) U Methamphetamines Scrn (NEGATIVE) Urine MDMA Screen (NEGATIVE) U Benzodiazepines Scrn (NEGATIVE) Urine Cocaine Screen (NEGATIVE) U Marijuana (THC) Screen (NEGATIVE) 05/12/17 05/12/17 05/12/17 Range/Units 00:05 00:20 00:20 WBC (5.0-10.0) 10^3/uL RBC (4.6-6.2) 10^6/uL Hgb (14.0-18.0) g/dL Hct (40.0-54.0) % MCV (80-100) fL MCH (27.0-34.0) pg MCHC (33.0-35.0) g/dL Plt Count (150-450) 10^3/uL Neut % (Auto) (42.2-75.2) % Lymph % (Auto) (20.5-50.1) % Conway % (Auto) (2-8) % Eos % (Auto) (1.0-3.0) % Baso % (Auto) (0.0-1.0) % Sodium 134 L (135-145) mmol/L Potassium 3.2 L (3.6-5.0) mmol/L Chloride 100 L (101-111) mmol/L Carbon Dioxide 24.0 (21.0-31.0) mmol/L Anion Gap 13.2 BUN 44 H (7-18) mg/dL Creatinine 2.1 H (0.6-1.3) mg/dL Est Cr Clr Drug Dosing TNP Estimated GFR (MDRD) 30 BUN/Creatinine Ratio 20.95 Glucose 96 (74-105) mg/dL Calcium 8.6 (8.4-10.2) mg/dl Magnesium (1.8-2.5) mg/dL Total Bilirubin 0.7 (0.2-1.0) mg/dL AST 52 H (10-42) IU/L ALT 28 (10-60) IU/L Alkaline Phosphatase 98 (42-121) IU/L Ammonia (11-35) umol/L Troponin I 0.05 H* (0.00-0.02) ng/ml B-Natriuretic Peptide (0-100) pg/ml Total Protein 6.3 L (6.7-8.2) g/dl Albumin 3.1 L (3.2-5.5) g/dl Globulin 3.2 Albumin/Globulin Ratio 0.97 Amylase (28-100) U/L Lipase (22-51) U/L Urine Color Yellow (YELLOW) Urine Appearance Clear (CLEAR) Urine pH 5.5 (5.0-9.0) Ur Specific Morris <= 1.005 (1.005-1.030) Urine Protein Trace H (NEGATIVE) Urine Glucose (UA) Negative (NEGATIVE) Urine Ketones Negative (NEGATIVE) Urine Occult Blood Negative (NEGATIVE) Urine Nitrite Negative (NEGATIVE) Urine Bilirubin Negative (NEGATIVE) Urine Urobilinogen 0.2 (0.2-1.0) mg/dL Ur Leukocyte Esterase Negative (NEGATIVE) Urine RBC 0-5 /HPF Urine WBC 0-5 (0-5/HPF) /HPF Ur Epithelial Cells Rare /HPF Amorphous Sediment Few (0/HPF) /HPF Urine Bacteria Few (0-FEW/HPF) /HPF Urine Opiates Screen Positive H (NEGATIVE) Ur Oxycodone Screen Negative (NEGATIVE) Urine Methadone Screen Negative (NEGATIVE) Ur Barbiturates Screen Negative (NEGATIVE) U Tricyclic Antidepress Negative (NEGATIVE) Ur Phencyclidine Scrn Negative (NEGATIVE) Ur Amphetamine Screen Negative (NEGATIVE) U Methamphetamines Scrn Negative (NEGATIVE) Urine MDMA Screen Negative (NEGATIVE) U Benzodiazepines Scrn Negative (NEGATIVE) Urine Cocaine Screen Negative (NEGATIVE) U Marijuana (THC) Screen Negative (NEGATIVE) Departure - Departure Time of Disposition: 01:07 Disposition: Admitted As Inpatient 65 Condition: Fair Clinical Impression: Generalized weakness Syncope Qualifiers: Syncope type: unspecified Qualified Code(s): R55 - Syncope and collapse - Discharge Information Care Plan Goals: Discussed the history, examination, lab, x-ray, and EKG results with Dr. Hernandez. Dr. Hernandez accepted the patient for observation at [facility] in [place]. - My Orders Last 24 Hours: My Active Orders 05/11/17 23:49 EKG Documentation Completion [RC] URGENT 05/12/17 00:05 Chest 1V Frontal [CR] Urgent - Assessment/Plan Last 24 Hours: My Active Orders 05/11/17 23:49 EKG Documentation Completion [RC] URGENT 05/12/17 00:05 Chest 1V Frontal [CR] Urgent
[2017-05-12 00:33] LABS: CHLORIDE,CL 100 mmol/L (101-111); SODIUM,NA 134 mmol/L (135-145)
[2017-05-12] MEDS ORDERED: Sodium Chloride 0.9% 1,000 ML IV SCH (02:45)
[2017-05-12] MEDS ORDERED: Albuterol 6.7 GM Inhaler INH PRN (04:12)
[2017-05-12] MEDS ORDERED: ACETAMINOPHEN 650 MG PO PRN (04:12)
[2017-05-12] MEDS ORDERED: Nitroglycerin 0.4 MG Tab.SL SL PRN (04:12)
[2017-05-12] MEDS ORDERED: Non-Formulary Medication 1 Each (Melatonin [Melatonin] 5 MG) PO PRN (04:12)
[2017-05-12] MEDS ORDERED: Albuterol 0.083% 2.5 MG/3 ML Neb Soln NEB PRN (04:12)
[2017-05-12] MEDS ORDERED: Loperamide 2 MG Cap PO PRN (04:12)
--- NOTE | 2017-05-12 05:04 | HP ---
CHIEF COMPLAINT: Syncopal episode at home. HISTORY OF PRESENTING ILLNESS: Mr. Wilner De Leon is an 86-year-old male with a medical history significant for hypertension, hyperlipidemia, status post mechanical aortic valve replaced, chronic kidney disease, coronary artery disease, presented to the ER with complaints of having a syncopal episode at home where his daughter noticed that he was not breathing well and not responding well, so the EMS was called in. By the time the EMS went, he was responding well and was brought to the emergency room. At this time, the patient denies any complaints of chest pain. No shortness of breath. No abdominal pain. No nausea. No vomiting. No diarrhea. He denies any chest pains. No headaches. No changes in the vision. No complaints of increasing weakness or tiredness. The patient claims that he has not been eating very well in the last few days. He has been followed in the clinic and also in the ER a couple of times this week. The patient denied any history of chest pains on exertion. No history of dyspnea on exertion. No history of orthopnea or paroxysmal nocturnal dyspnea. The patient denied any history of hematemesis, hematochezia, or melenic stools. Normal bowel and bladder habits otherwise. REVIEW OF SYSTEMS: A complete review of system including skin, ear, nose, and throat, cardiovascular system, respiratory system, gastrointestinal system, genitourinary system, hematology, oncology, neurology, allergy, immunology were all evaluated and were negative except for the above-said notes. PAST MEDICAL HISTORY: Significant for hypertension, hyperlipidemia, coronary artery disease, chronic kidney disease, history of colonic polyp, bilateral carpal tunnel syndrome. Aortic stenosis, status post mechanical aortic valve replaced. Chronic anticoagulation with Coumadin. Chronic tobacco use. Iron deficiency anemia. PAST SURGICAL HISTORY: Significant for aortic valve replaced with a mechanical valve, cardiac pacemaker placement, carotid endarterectomy, colon surgery, coronary artery bypass graft, exploratory laparotomy, small intestinal surgery, tracheostomy tube placement. FAMILY HISTORY: Significant for heart disease and stroke in his mother, heart disease and lung cancer in his father, and diabetes in his sister. SOCIAL HISTORY: The patient continues to smoke 1 to 2 cigarettes per day. No history of alcohol intake. ALLERGIES: The patient is known to have allergies to diphenhydramine which causes urinary retention. PHYSICAL EXAMINATION: Vital Signs: Temperature of 98.7, pulse of 60, blood pressure 152/55, respiratory rate of 14. Saturating at 100% on room air. General Appearance: The patient is well oriented to time, place, and person. Follows commands spontaneously. Cardiovascular: S1, S2 heard with normal intensity. No gallops. Respiratory: Clear to auscultation bilaterally. No wheeze. No crepitations. Abdomen: Soft. Bowel sounds positive. Nontender. No rigidity. Extremities: No edema in bilateral lower extremities. Neurology: No gross focal neurological deficit. The patient is unable to lift his left upper extremity secondary to the shoulder pain. HOME MEDICATIONS: Reviewed, noted to be on: 1. [place] 10/325 mg. 2. DuoNeb. 3. Tobramycin eye drops. 4. Hydralazine 50 mg two times a day. 5. Coumadin 3 mg daily. 6. Lasix 20 mg daily. 7. Flomax 0.4 mg capsule. 8. Coreg 6.25 mg. 9. Trazodone 100 mg nightly. 10.Simvastatin 80 mg. 11.Spironolactone 12.5 mg half a tablet. 12.Melatonin 5 mg capsule nightly as needed. 13.Aspirin 81 mg daily. 14.Imodium 2 mg capsule as needed. 15.Tylenol 650 mg as needed. LABORATORY DATA: Reviewed. WBC 6.5, hemoglobin 11.4, hematocrit 34.1, platelet count 160. Sodium 134, potassium 3.2, chloride 100, bicarb 24, BUN 44, creatinine 2.1, glucose 96. AST 52, ALT 28, ammonia 14, troponin 0.05. BNP 263. Magnesium 1.6. Urinalysis: Negative for nitrites, negative for leukocytes. Urine toxicology screen positive for opiates. ASSESSMENT AND PLAN: 1. Syncopal episode. The patient presents with an episode of syncope with loss of consciousness. Exact etiology not clear. The patient has history of aortic stenosis with mechanical aortic valve, but his recent echocardiogram was back in April of 2017 which was within normal limits with a grade 1 diastolic dysfunction. The patient will be referred to observation status. We will get a CT scan of the head for now, and we will closely follow. No infection noted at this juncture. 2. Possible dehydration. The patient is noted to have elevated BUN and creatinine suggestive of possible dehydration. Keep him hydrated with IV fluids. 3. Chronic kidney disease. Creatinine is around 2.2, slightly elevated from his baseline function. Keep him hydrated with IV fluids. Recheck a basic metabolic panel in the a.m. 4. Hypertension, elevated. The patient noted to have elevated blood pressure. Continue with current antihypertensive medication with Coreg. We will further dose adjust the medication to optimize the blood pressure. 5. Aortic valve replaced. The patient has a mechanical aortic valve. We will get an INR at this time. He is noted to be on Coumadin. Continue the same. 6. Tobacco use. The patient is educated about tobacco cessation. Strongly encouraged him to quit smoking which he understands and verbalized the same. 7. DVT prophylaxis. The patient is currently on Coumadin. Continue the same. 8. Code status. The patient wants to be full code. 9. Discussed with Loc Greene regarding the plan of care from the ER. Reviewed the labs and medications. Reviewed the old charts. [facility] /[id number]
[2017-05-12] MEDS: traZODone 50 MG Tab PO SCH ×2 (05:05→20:35)
[2017-05-12] MEDS ORDERED: Albuterol/Ipratropium 3.0-0.5 MG/3 ML Neb Soln INH SCH (09:00)
[2017-05-12] MEDS: Acetaminophen 325 MG Tab PO PRN ×3 (09:39→21:41)
[2017-05-12] MEDS: Tamsulosin 0.4 MG Cap.ER PO SCH (11:15)
[2017-05-12] MEDS: Carvedilol 3.125 MG Tab PO SCH ×2 (11:15→20:34)
[2017-05-12] MEDS: Multivitamins,Therapeutic Tab PO SCH (11:15)
[2017-05-12] MEDS: Aspirin 81 MG Tab.EC PO SCH (11:16)
[2017-05-12] MEDS: Furosemide 40 MG Tab PO SCH ×2 (11:17→16:39)
[2017-05-12] MEDS: hydrALAZINE 25 MG Tab PO SCH ×2 (11:17→20:33)
--- NOTE | 2017-05-12 13:38 | PN ---
DATE: 05/12/2017 HISTORY OF PRESENT ILLNESS: Mr. Wilner De Leon is an 86-year-old male with medical history significant for hypertension; hyperlipidemia; status post mechanical aortic valve replacement, on chronic anticoagulation with Coumadin; chronic kidney disease, was admitted to the hospital after having a syncopal episode at home. For the last 24 hours, the patient was noted to be severely dehydrated at the time of admission possibly leading to the syncopal episode from poor oral intake. The patient was started on IV fluids. Closely monitored on the telemetry unit. This morning, the patient denies any chest pain. No shortness of breath. No abdominal pain. No nausea. No vomiting. No diarrhea. No fevers. No chills. REVIEW OF SYSTEMS: Cardiovascular, respiratory, gastrointestinal, neurology, constitutional were all evaluated. PHYSICAL EXAMINATION: Vital Signs: Temperature of 96.6, pulse of 61, blood pressure 145/58, respiratory rate 20, saturating at 98% on room air. General Appearance: The patient is awake and alert. Follows commands spontaneously. Cardiovascular System: S1, S2 heard with normal intensity. No murmurs. No gallops. Respiratory System: Clear to auscultation bilaterally. No wheeze. No crepitations. Abdomen: Soft. Bowel sounds positive. Nontender. No rigidity. Extremities: No edema in bilateral lower extremities. NEUROLOGY: No gross focal neurological deficit. MEDICATIONS: Medications reviewed. Continue with: 1. Tylenol 650 mg every 4 hours as needed for pain. 2. Albuterol inhalation every 4 hours as needed for dyspnea. 3. DuoNeb 3 mL inhalation q.i.d. 4. Aspirin 81 mg daily. 5. Coreg 6.25 mg twice a day. 6. Lasix 20 mg twice a day. 7. Hydralazine 50 mg twice a day. 8. Imodium 2 mg as needed for diarrhea. 9. Zocor 40 mg at bedtime. 10.Flomax 0.4 mg daily. 11.Trazodone 50 mg at bedtime. 12.Coumadin 3 mg daily. LABORATORY DATA: Reviewed. INR of 3.1. Sodium 137, potassium 3.3, chloride 103, bicarb 24, BUN 42, creatinine 1.9, glucose 88. ASSESSMENT: 1. Syncopal episode. 2. Hypertension. 3. Hyperlipidemia. 4. Malnutrition from poor oral intake. 5. Dehydration. 6. Hypokalemia. 7. Status post mechanical aortic valve replaced. 8. Chronic anticoagulation with Coumadin. PLAN: 1. Syncopal episode. The patient presents with syncopal episode. This is mainly resulting from dehydration. The patient has been on Lasix and spironolactone. We will hold spironolactone at this time. The patient's family members complains the patient has poor oral intake and is unable to eat anything. The patient is encouraged to have good oral intake. We will prescribe Ensure as tolerated. The patient's family members claims that he has lactose intolerance and was not able to tolerate Ensure in the past. We will try to give clear Ensure. 2. Hypokalemia, mild in nature. We will continue the oral potassium chloride. Recheck a basic metabolic panel in the a.m. 3. Chronic kidney disease. His creatinine seems to be improved after IV hydration. We will discontinue the IV fluids. We will closely monitor the patient. Avoid any nephrotoxic agents. Dose adjust medications for renal function. 4. Hypertension. Avoid any hypotensive episodes. Continue with Coreg for now. 5. We will have Physical Therapy and Occupational Therapy evaluate and treat the patient. 6. Hyponatremia, mild in nature. Improved with IV hydration and sodium is normal at 137. 7. Chronic anticoagulation with Coumadin. Continue with current dose of Coumadin as INR is therapeutic at 3.1. 8. Discussed with family members at bedside. 9. Possible discharge in a.m. if he remains hemodynamically stable. [facility] /[id number]
[2017-05-12] MEDS: Albuterol/Ipratropium 3.0-0.5 MG/3 ML Neb Soln INH SCH ×2 (17:21→20:35)
[2017-05-12] MEDS: Potassium Chloride 10 MEQ Tab.ER PO SCH (20:14)
[2017-05-12] MEDS: DEXAMETHASONE EYELF SCH (20:37)
[2017-05-12] MEDS: TOBRAMYCIN EYELF SCH (20:37)
[2017-05-12] MEDS ORDERED: Simvastatin 40 MG Tab PO SCH (21:00)
[2017-05-13] MEDS: Albuterol/Ipratropium 3.0-0.5 MG/3 ML Neb Soln INH SCH ×2 (06:15→11:03)
[2017-05-13] MEDS: Potassium Chloride 10 MEQ Tab.ER PO SCH (08:33)
[2017-05-13] MEDS: Furosemide 40 MG Tab PO SCH ×2 (08:33→14:53)
[2017-05-13] MEDS: Multivitamins,Therapeutic Tab PO SCH (08:34)
[2017-05-13] MEDS: Tamsulosin 0.4 MG Cap.ER PO SCH (08:34)
[2017-05-13] MEDS: Aspirin 81 MG Tab.EC PO SCH (08:34)
[2017-05-13] MEDS: Carvedilol 3.125 MG Tab PO SCH (10:48)
[2017-05-13] MEDS: hydrALAZINE 25 MG Tab PO SCH (10:49)
[2017-05-13 10:50] VITALS: BP 138/59
[2017-05-13] MEDS: TOBRAMYCIN EYELF SCH ×2 (10:52→14:53)
[2017-05-13] MEDS: DEXAMETHASONE EYELF SCH ×2 (10:52→14:53)
--- NOTE | 2017-05-14 03:37 | DISCH ---
ADMITTING DIAGNOSIS: Syncopal episode. DISCHARGE DIAGNOSIS: Syncopal episode mainly from severe dehydration from poor oral intake and diuresis. HISTORY OF PRESENT ILLNESS: Mr. Augie Darby is an 86-year-old male with medical history significant for hypertension, hyperlipidemia, status post mechanical aortic valve replaced on chronic anticoagulation with Coumadin, chronic kidney disease, coronary artery disease, was admitted to the hospital after he had a syncopal episode at home and further evaluation showed evidence of possible dehydration from poor oral intake and also the patient has been on Lasix and spironolactone, which could have led to excessive diuresis and dehydration. The patient was treated with IV fluids. We held the spironolactone and continue with Lasix on this admission. He is able to ambulate well without any difficulty. He did not have any further syncopal episode. He was closely monitored on the telemetry unit, was shows normal sinus rhythm without any evidence of severe bradycardia. He remained hemodynamically stable on this admission. He is discharged home in stable condition. The patient and family members were explained about the changes in his medication about holding of the spironolactone for now and continue the Lasix. The patient is encouraged to have good oral intake. He is discharged home in stable condition. DISCHARGE MEDICATIONS: Include: 1. Tylenol 650 mg every 8 hours as needed for pain. 2. Albuterol 2.5 mg nebulizer inhalation every 6 hours as needed for dyspnea. 3. Albuterol 2 puffs inhalation every 4 hours as needed. 4. Aspirin 81 mg daily. 5. Coreg 6.25 mg twice a day. 6. Lasix 20 mg twice a day. 7. Ipratropium/albuterol 3 mL inhalation 4 times daily. 8. Imodium 2 mg 3 times a day as needed for diarrhea. 9. Melatonin 5 mg at bedtime as needed for sleep. 10.Multivitamin 1 tablet each daily. 11.Nitroglycerin 0.4 mg sublingual as needed for chest pain. 12.Simvastatin 40 mg at bedtime. 13.Flomax 0.4 mg daily. 14.Coumadin 3 mg oral daily. 15.Hydralazine 50 mg twice a day. 16.Trazodone 50 mg every evening. The patient is advised to hold taking the promethazine/codeine syrup and also spironolactone. PHYSICAL EXAMINATION: On the day of discharge: Vital Signs: Temperature of 96.6, pulse of 63, blood pressure of 138/59, respiratory rate of 20, and saturating at 98% on room air. General Appearance: The patient is well oriented to time, place, and person. Follows commands spontaneously. Cardiovascular: S1, S2 heard with normal intensity. No gallops. Respiratory: Clear to auscultation bilaterally. No wheeze. No crepitations. Abdomen: Soft. Bowel sounds positive. Nontender. No rigidity. Extremities: No edema bilateral lower extremities. Neurologic: No gross focal neurological deficits. CONDITION ON ADMISSION: Poor. CONDITION ON DISCHARGE: Stable. DISPOSITION: Discharged to home. ACTIVITY: As tolerated. DIET: Cardiac healthy diet. FOLLOWUP: With primary care physician next 1 to 2 weeks of time. I spent over 35 minutes of time in evaluating and treating this patient and discussing treatment goals and options and change in medications with the patient and family members at bedside. [facility] /[id number]
--- NOTE | 2017-05-15 13:26 | EKG ---
05/11/2017 - YOKO CROWE - A 12-lead EKG shows atrial paced rhythm. No further interpretation needed at this time secondary to the paced rhythm. [facility] /[id number]
== END 2017-05-13 11:40 | disposition home or self-care (01) ==
LOC: DL.ED 23:31 → DL.MS 05-12 01:16 → UNDOADMOB 05-12 01:16 → DL.MS 05-12 04:08
PROVIDERS: ADMIT Internal Medicine; ATTEND Internal Medicine
DX: R55 Syncope and collapse (principal); E86.0 Dehydration; I12.9 Hypertensive chronic kidney disease with stage 1 through stage 4 chronic kidney disease, or unspecified chronic kidney disease; N18.9 Chronic kidney disease, unspecified; E87.6 Hypokalemia; E87.1 Hypo-osmolality and hyponatremia; E46 Unspecified protein-calorie malnutrition; I25.10 Atherosclerotic heart disease of native coronary artery without angina pectoris; E78.5 Hyperlipidemia, unspecified; F17.210 Nicotine dependence, cigarettes, uncomplicated; Z86.010 Personal history of colon polyps; Z79.01 Long term (current) use of anticoagulants; Z79.82 Long term (current) use of aspirin; Z79.899 Other long term (current) drug therapy; Z88.8 Allergy status to other drugs, medicaments and biological substances; Z95.0 Presence of cardiac pacemaker; Z95.1 Presence of aortocoronary bypass graft; Z95.2 Presence of prosthetic heart valve; Z98.890 Other specified postprocedural states; Z82.49 Family history of ischemic heart disease and other diseases of the circulatory system
CPT/HCPCS: 36415; 71010; 80048; 80053; 80305; 81001; 82140; 82150; 83690; 83735; 83880; 84484; 85025; 85027; 85610; 93005; 93010; 94640; 94667; 96360; 96361; 99285; A9270; G0378; J7030; 99284

== ENCOUNTER 2017-09-18 02:01 | Observation (INO) | payer MEDICARE, OTHER ==
--- NOTE | 2017-09-18 02:23 | EDM.PDOC ---
ED HPI GENERAL MEDICAL PROBLEM - General Chief Complaint: Neurological Problem Stated Complaint: IN BY AMB Time Seen by Provider: 09/18/17 02:15 Source of Information: Reports: EMS, Family History Limitations: Reports: Altered Mental Status - History of Present Illness INITIAL COMMENTS - FREE TEXT/NARRATIVE: EMS states was called to pt with SOB arrived finding pt unresponsive except to pain & shallow respiration with what seems to be unequal pupils and family giving h/o giving pt 5 x NTG. pt started to respond en route to ER. son arrived states pt was resting in his recliner and he usually does eat at this time of the night and they went to get him and found he was unresponsive then called EMS. also states pt is full code. pt arrived awake but confused. - Related Data Allergies Allergy/AdvReac Type Severity Reaction Status Date / Time lactose Allergy Intermediate Diarrhea Verified 09/18/17 02:20 diphenhydramine Allergy Mild Confusion Verified 09/18/17 02:20 Home Meds: Home Meds Simvastatin 40 mg PO BEDTIME 10/04/13 [History] Albuterol [Ventolin HFA] 2 puff INH Q4H PRN 09/19/14 [History] Tamsulosin [Flomax] 0.4 mg PO DAILY 11/19/14 [History] Carvedilol [Coreg] 6.25 mg PO BID 12/23/15 [History] Furosemide [Lasix] 20 mg PO BID 12/23/15 [History] Albuterol [Proventil Neb Soln] 2.5 mg NEB Q6HRRT PRN 02/18/16 [History] Aspirin [Halfprin] 81 mg PO DAILY 02/18/16 [History] hydrALAZINE [Apresoline] 50 mg PO BID 06/25/16 [History] Loperamide [Imodium] 2 mg PO TID PRN 04/03/17 [History] Melatonin 5 mg PO BEDTIME PRN 04/03/17 [History] Multivit-Min/FA/Lycopen/Lutein [Centrum Silver Men Tablet] 1 each PO DAILY 04/03 [History] Warfarin Sodium [Coumadin] 3 mg PO DAILY 04/03/17 [History] traZODone HCl [Trazodone HCl] 50 mg PO QPM 04/03/17 [History] Acetaminophen [Acetaminophen 8 Hour] 650 mg PO Q8HR PRN 05/12/17 [History] Ipratropium/Albuterol Sulfate [IJD: DuoNeb 3.0-0.5 MG/3 ML] 3 ml INH QID [History] Nitroglycerin [Nitrostat] 0.4 mg SL ASDIRECTED PRN 05/12/17 [History] Amoxicillin/Potassium Clav [Amox-Clav 875-125 mg Tablet] 1 tab PO BID 09/18/17 [ History] Past Medical History HEENT History: Reports: Cataract, Hard of Hearing, Impaired Vision, Other (See Below) Other HEENT History: WEARS CORRECTIVE LENSES; HEARING AIDE TO R SIDE; TOP DENTURE PLATE, BOTTOM PARTIAL Cardiovascular History: Reports: Bypass, CAD, Heart Failure, Heart Valve Replacement, High Cholesterol, Hypertension, Pacemaker Other Cardiovascular History: AORTIC STENOSIS; MITRAL INSUFFICIENCY; TRICUSPID INSUFFICIENCY Respiratory History: Reports: Asthma, Pneumonia, Recurrent Gastrointestinal History: Reports: Colon Polyp, Diverticulosis, GERD Other Gastrointestinal History: HYPERMOTILITY OF INTESTINE Genitourinary History: Reports: BPH, Chronic Renal Insuffiency, Urinary Incontinence Other Genitourinary History: STAGE III Musculoskeletal History: Reports: Osteoarthritis Other Musculoskeletal History: CARPAL TUNNEL SYNDROME BILAT Neurological History: Reports: TIA Other Neuro History: head bleed s/p fall; DYSPHAGIA Psychiatric History: Reports: Depression Endocrine/Metabolic History: Reports: None Hematologic History: Reports: Anemia, Blood Transfusion(s), Iron Deficiency Other Hematologic History: ANTICOAGULATION MONITORING; MICROALBUMINURIA; HYPERKALEMIA Immunologic History: Reports: None Oncologic (Cancer) History: Reports: Colon Dermatologic History: Reports: None - Infectious Disease History Infectious Disease History: Reports: None - Past Surgical History Head Surgeries/Procedures: Reports: None HEENT Surgical History: Reports: Oral Surgery Cardiovascular Surgical History: Reports: Carotid Endarterectomy, Coronary Artery Bypass, Valve Replacement Respiratory Surgical History: Reports: Tracheostomy GI Surgical History: Reports: Colon, Colonoscopy, Colostomy Musculoskeletal Surgical History: Reports: Shoulder Surgery Social & Family History - Family History Family Medical History: Noncontributory HEENT: Reports: Cataract, Glaucoma Cardiac: Reports: Hypertension Musculoskeletal: Reports: Arthritis, Back pain, Chronic Neurological: Reports: CVA Psychiatric: Reports: Other (See Below) Other Psychiatric Family History: ALCOHOLISM Endocrine/Metabolic: Reports: Diabetes, type II Oncologic: Reports: Brain, Lung - Tobacco Use Smoking Status *Q: Unknown Ever Smoked Years of Tobacco use: 60 Packs/Tins Daily: 0.1 Used Tobacco, but Quit: No Month Tobacco Last Used: 09/14/13 Second Hand Smoke Exposure: No - Caffeine Use Caffeine Use: Reports: Other Other Caffeine Use: unknown - Alcohol Use Days Per Week of Alcohol Use: 1 Number of Drinks Per Day: 2 Total Drinks Per Week: 2 - Recreational Drug Use Recreational Drug Use: No - Living Situation & Occupation Living situation: Reports: , with Spouse Occupation: Retired ED ROS GENERAL - Review of Systems Review Of Systems: ROS reveals no pertinent complaints other than HPI. - Physical Exam Exam: See Below Exam Limited By: Altered Mental Status General Appearance: Other (confused but follow command) Eye Exam: Bilateral Eye: PERRL (pupils ess ER @ 4mm) Ears: Hearing Grossly Normal Throat/Mouth: Normal Voice, No Airway Compromise Head Exam: Atraumatic Neck: Non-Tender, Full Range of Motion Respiratory/Chest: No Respiratory Distress, No Accessory Muscle Use, Rhonchi Cardiovascular: Regular Rate, Rhythm GI/Abdominal: Soft, Non-Tender Neuro Exam (Abbreviated): No Motor/Sensory Deficits, Confused Extremities: Other (rom present bilateral) Psychiatric: Flat Affect Skin Exam: Warm, Dry, Normal Color Course - Vital Signs Last Recorded V/S: Last Vital Signs Temp 35.6 C 09/18/17 03:06 Pulse 71 09/18/17 03:06 Resp 21 H 09/18/17 03:06 BP 90/46 L 09/18/17 03:06 Pulse Ox 98 09/18/17 03:06 - Orders/Labs/Meds Orders: Active Orders 24 hr Category Date Time Status EKG 12 Lead [EKG Documentation Completion] [RC] STAT Care 09/18/17 02:11 Active Chest 1V Frontal [CR] Urgent Exams 09/18/17 02:15 Taken Head wo Cont [CT] Urgent Exams 09/18/17 02:14 Taken Labs: Laboratory Tests 09/18/17 09/18/17 09/18/17 Range/Units 02:05 02:05 02:05 WBC 7.8 (5.0-10.0) 10^3/uL RBC 4.32 L (4.6-6.2) 10^6/uL Hgb 13.5 L D (14.0-18.0) g/dL Hct 41.7 (40.0-54.0) % MCV 96.5 D (80-100) fL MCH 31.3 (27.0-34.0) pg MCHC 32.4 L (33.0-35.0) g/dL Plt Count 234 D (150-450) 10^3/uL Neut % (Auto) 73.9 (42.2-75.2) % Lymph % (Auto) 16.0 L (20.5-50.1) % Giles % (Auto) 7.7 (2-8) % Eos % (Auto) 2.1 (1.0-3.0) % Baso % (Auto) 0.3 (0.0-1.0) % PT 35.0 H (9.0-12.0) SEC INR 3.5 H (0.9-1.2) APTT 41.1 H (22.0-34.0) SEC Sodium 137 (135-145) mmol/L Potassium 5.0 D (3.6-5.0) mmol/L Chloride 105 (101-111) mmol/L Carbon Dioxide 25.0 (21.0-31.0) mmol/L Anion Gap 12.0 BUN 16 (7-18) mg/dL Creatinine 1.9 H (0.6-1.3) mg/dL Est Cr Clr Drug Dosing TNP Estimated GFR (MDRD) 34 BUN/Creatinine Ratio 8.42 Glucose 125 H (74-105) mg/dL Calcium 8.2 L (8.4-10.2) mg/dl Total Bilirubin 0.6 (0.2-1.0) mg/dL AST 32 (10-42) IU/L ALT 15 (10-60) IU/L Alkaline Phosphatase 102 (42-121) IU/L Troponin I 0.02 (0.00-0.02) ng/ml Total Protein 6.7 (6.7-8.2) g/dl Albumin 2.5 L (3.2-5.5) g/dl Globulin 4.2 Albumin/Globulin Ratio 0.60 - Re-Assessments/Exams Free Text/Narrative Re-Assessment/Exam: 09/18/17 02:57 re-exam; alert no acute distress Departure - Departure Time of Disposition: 03:15 Disposition: Refer to Observation Condition: Fair Clinical Impression: Hypotension due to drugs TIA (transient ischemic attack) Qualifiers: Transient cerebral ischemia type: unspecified Qualified Code(s): G45.9 - Transient cerebral ischemic attack, unspecified - Discharge Information Forms: ED Department Discharge - My Orders Last 24 Hours: My Active Orders 09/18/17 02:11 EKG 12 Lead [EKG Documentation Completion] [RC] STAT 09/18/17 02:14 Head wo Cont [CT] Urgent 09/18/17 02:15 Chest 1V Frontal [CR] Urgent - Assessment/Plan Last 24 Hours: My Active Orders 09/18/17 02:11 EKG 12 Lead [EKG Documentation Completion] [RC] STAT 09/18/17 02:14 Head wo Cont [CT] Urgent 09/18/17 02:15 Chest 1V Frontal [CR] Urgent
[2017-09-18 02:35] LABS: CHLORIDE,CL 105 mmol/L (101-111); SODIUM,NA 137 mmol/L (135-145)
[2017-09-18] MEDS ORDERED: Sodium Chloride 0.9% 1,000 ML IV SCH (03:45)
[2017-09-18] MEDS ORDERED: Albuterol 0.083% 2.5 MG/3 ML Neb Soln NEB PRN (04:13)
[2017-09-18] MEDS ORDERED: Loperamide 2 MG Cap PO PRN (04:13)
[2017-09-18] MEDS ORDERED: Nitroglycerin 0.4 MG Tab.SL SL PRN (04:13)
[2017-09-18] MEDS ORDERED: Ondansetron 4 MG/2 ML SDV IVPUSH PRN (04:19)
[2017-09-18] MEDS ORDERED: Sodium Chloride 0.9% 10 ML Syringe FLUSH PRN (04:19)
[2017-09-18] MEDS ORDERED: Acetaminophen 325 MG Tab PO PRN (04:19)
--- NOTE | 2017-09-18 04:38 | PCM.HP ---
H&P History of Present Illness - General Date of Service: 09/18/17 Admit Problem/Dx: Admission Diagnosis/Problem Admission Diagnosis/Problem Unresponsive Source of Information: Family, Provider (ER) - History of Present Illness Initial Comments - Free Text/Narative: The patient is an 86-year-old gentleman with a history of diabetes, coronary artery disease, mechanical aortic valve replacement, chronic anticoagulation, hypertension, diastolic congestive heart failure. The patient's last echocardiogram in April 2017 showed an ejection fraction of 50-55%, grade 1 diastolic dysfunction. The patient has a permanent pacemaker. The patient has not been eating well for about a month according to family. still operator batch or continuous on the day of admission the patient was noted to have an episode of unresponsiveness. He was sitting in the chair when the daughter could not wake him up. the daughter was rubbing the chest, was applying oxygen for about 15 minutes. She was also getting repeatedly nitroglycerin sublingual. There was no apparent seizure. No loss of bowel movements. Prior to this the patient had no complaints of chest pain, shortness of breath, fever or chills lately. No headaches. he was recently seen for a preoperative evaluation and was given antibiotics for coughing. During that clinic visit the patient was noted to have hypokalemia and replacement was started. His blood pressure was 90/46 in the clinic The patient regained consciousness but still not as talkative as usual according to family. - Related Data Allergies/Adverse Reactions: Allergies Allergy/AdvReac Type Severity Reaction Status Date / Time lactose Allergy Intermediate Diarrhea Verified 09/18/17 02:20 diphenhydramine Allergy Mild Confusion Verified 09/18/17 02:20 Home Medications: Home Meds Simvastatin 40 mg PO BEDTIME 10/04/13 [History] Albuterol [Ventolin HFA] 2 puff INH Q4H PRN 09/19/14 [History] Tamsulosin [Flomax] 0.4 mg PO DAILY 11/19/14 [History] Carvedilol [Coreg] 6.25 mg PO BID 12/23/15 [History] Furosemide [Lasix] 20 mg PO BID 12/23/15 [History] Albuterol [Proventil Neb Soln] 2.5 mg NEB Q6HRRT PRN 02/18/16 [History] Aspirin [Halfprin] 81 mg PO DAILY 06/17/16 [History] hydrALAZINE [Apresoline] 50 mg PO BID 06/25/16 [History] Loperamide [Imodium] 2 mg PO TID PRN 04/03/17 [History] Melatonin 5 mg PO BEDTIME PRN 04/03/17 [History] Multivit-Min/FA/Lycopen/Lutein [Centrum Silver Men Tablet] 1 each PO DAILY 04/03 [History] Warfarin Sodium [Coumadin] 3 mg PO DAILY 04/03/17 [History] traZODone HCl [Trazodone HCl] 50 mg PO QPM 04/03/17 [History] Acetaminophen [Acetaminophen 8 Hour] 650 mg PO Q8HR PRN 05/12/17 [History] Ipratropium/Albuterol Sulfate [IJD: DuoNeb 3.0-0.5 MG/3 ML] 3 ml INH QID [History] Nitroglycerin [Nitrostat] 0.4 mg SL ASDIRECTED PRN 05/12/17 [History] Amoxicillin/Potassium Clav [Amox-Clav 875-125 mg Tablet] 1 tab PO BID 09/18/17 [ History] Past Medical History HEENT History: Reports: Cataract, Hard of Hearing, Impaired Vision, Other (See Below) Other HEENT History: WEARS CORRECTIVE LENSES; HEARING AIDE TO R SIDE; TOP DENTURE PLATE, BOTTOM PARTIAL Cardiovascular History: Reports: Bypass, CAD, Heart Failure, Heart Valve Replacement, High Cholesterol, Hypertension, Pacemaker Other Cardiovascular History: AORTIC STENOSIS; MITRAL INSUFFICIENCY; TRICUSPID INSUFFICIENCY Respiratory History: Reports: Asthma, Pneumonia, Recurrent Gastrointestinal History: Reports: Colon Polyp, Diverticulosis, GERD Other Gastrointestinal History: HYPERMOTILITY OF INTESTINE Genitourinary History: Reports: BPH, Chronic Renal Insuffiency, Urinary Incontinence Other Genitourinary History: STAGE III Musculoskeletal History: Reports: Osteoarthritis Other Musculoskeletal History: CARPAL TUNNEL SYNDROME BILAT Neurological History: Reports: TIA Other Neuro History: head bleed s/p fall; DYSPHAGIA Psychiatric History: Reports: Depression Endocrine/Metabolic History: Reports: None Hematologic History: Reports: Anemia, Blood Transfusion(s), Iron Deficiency Other Hematologic History: ANTICOAGULATION MONITORING; MICROALBUMINURIA; HYPERKALEMIA Immunologic History: Reports: None Oncologic (Cancer) History: Reports: Colon Dermatologic History: Reports: None - Infectious Disease History Infectious Disease History: Reports: None - Past Surgical History Head Surgeries/Procedures: Reports: None HEENT Surgical History: Reports: Oral Surgery Cardiovascular Surgical History: Reports: Carotid Endarterectomy, Coronary Artery Bypass, Valve Replacement Respiratory Surgical History: Reports: Tracheostomy GI Surgical History: Reports: Colon, Colonoscopy, Colostomy Musculoskeletal Surgical History: Reports: Shoulder Surgery Social & Family History - Family History Family Medical History: Noncontributory HEENT: Reports: Cataract, Glaucoma Cardiac: Reports: Hypertension Musculoskeletal: Reports: Arthritis, Back pain, Chronic Neurological: Reports: CVA Psychiatric: Reports: Other (See Below) Other Psychiatric Family History: ALCOHOLISM Endocrine/Metabolic: Reports: Diabetes, type II Oncologic: Reports: Brain, Lung - Tobacco Use Smoking Status *Q: Unknown Ever Smoked Years of Tobacco use: 60 Packs/Tins Daily: 0.1 Used Tobacco, but Quit: No Month Tobacco Last Used: 09/14/13 Second Hand Smoke Exposure: No - Caffeine Use Caffeine Use: Reports: Other Other Caffeine Use: unknown - Alcohol Use Days Per Week of Alcohol Use: 1 Number of Drinks Per Day: 2 Total Drinks Per Week: 2 - Recreational Drug Use Recreational Drug Use: No - Living Situation & Occupation Living situation: Reports: , with Spouse Occupation: Retired H&P Review of Systems - Review of Systems: Review Of Systems: See Below General: Denies: Fever Pulmonary: Denies: Shortness of Breath Cardiovascular: Reports: Syncope. Denies: Chest Pain Genitourinary: Denies: Dysuria Psychiatric: Denies: Confusion Neurological: Reports: Syncope Exam - Exam Exam: See Below - Vital Signs Vital Signs: Last Vital Signs Temp 35.8 C 09/18/17 04:10 Pulse 72 09/18/17 04:10 Resp 16 09/18/17 04:10 BP 120/55 L 09/18/17 04:10 Pulse Ox 98 09/18/17 04:10 - Exam Quality Assessment: Supplemental Oxygen General: Alert, Other (Concerning only some questions, can tell his name otherwise not communicating.) HEENT: EOMI, Abnormal Pupils (Recent cataract surgery) Neck: Supple Lungs: Normal Respiratory Effort, Decreased Breath Sounds Cardiovascular: Regular Rate, Regular Rhythm, Other (Mechanical sound) GI/Abdominal Exam: Normal Bowel Sounds, Soft, Non-Tender Extremities: No Pedal Edema Skin: Warm, Dry Neurological: Strength Equal Bilateral Neuro Extensive - Mental Status: Alert, Slow Response to Commands, Other (Moves extremities when asked) Psychiatric: Alert - Patient Data Result Diagrams: 09/18/17 02:05 09/18/17 02:05 Bart Results Last 24 hrs: EKG per my reading shows sinus rhythm at the rate of 67 CT of the head reading "acute sinus disease, no acute intracranial pathology, that are bilateral thalamic or lacunar infarcts, high right frontoparietal Old infarct" Chest x-ray per reading "no acute cardiopulmonary pathology but there is a 10 mm nodular opacity overlying the left costophrenic angle with differential including pulmonary nodule or nipple shadow" *Q Meaningful Use (ADM) - VTE *Q VTE Criteria *Q: - Stroke *Q Stroke Criteria *Q: - AMI *Q AMI Criteria *Q: - Problem List (1) CKD (chronic kidney disease) stage 3, GFR 30-59 ml/min SNOMED Code(s): 714616338 ICD Code: N18.3 - CHRONIC KIDNEY DISEASE, STAGE 3 (MODERATE) Status: Acute Current Visit: No (2) Hypotension due to medication Status: Acute Current Visit: Yes (3) Syncope SNOMED Code(s): 390802346 ICD Code: R55 - SYNCOPE AND COLLAPSE Status: Acute Current Visit: No Qualifiers: Syncope type: unspecified Qualified Code(s): R55 - Syncope and collapse Problem List Initiated/Reviewed/Updated: Yes Orders Last 24hrs: Active Orders 24 hr Category Date Time Status Patient Status [ADT] Routine ADT 09/18/17 04:19 Ordered Antiembolic Devices [RC] PER UNIT ROUTINE Care 09/18/17 04:21 Ordered Oxygen Therapy [RC] PRN Care 09/18/17 04:19 Ordered Peripheral IV Care [RC] . DIRECTED Care 09/18/17 04:21 Ordered Telemetry Monitoring [Cardiac Monitoring] [RC] . Care 09/18/17 04:22 Ordered DIRECTED Up With Assistance [RC] ASDIRECTED Care 09/18/17 04:19 Ordered VTE/DVT Education [RC] PER UNIT ROUTINE Care 09/18/17 04:19 Ordered Vital Signs [RC] Q4H Care 09/18/17 04:19 Ordered Regular Diet [DIET] Diet 09/18/17 Breakfast Ordered BASIC METABOLIC PANEL,BMP [CHEM] AM Lab 09/18/17 05:11 Ordered BASIC METABOLIC PANEL,BMP [CHEM] AM Lab 09/19/17 05:11 Ordered CBC WITH AUTO DIFF [HEME] AM Lab 09/18/17 05:11 Ordered CBC WITH AUTO DIFF [HEME] AM Lab 09/19/17 05:11 Ordered INR,PT,PROTHROMBIN TIME [COAG] AM Lab 09/19/17 05:11 Ordered INR,PT,PROTHROMBIN TIME [COAG] AM Lab 09/20/17 05:11 Ordered INR,PT,PROTHROMBIN TIME [COAG] AM Lab 09/21/17 05:11 Ordered INR,PT,PROTHROMBIN TIME [COAG] AM Lab 09/22/17 05:11 Ordered INR,PT,PROTHROMBIN TIME [COAG] AM Lab 09/23/17 05:11 Ordered INR,PT,PROTHROMBIN TIME [COAG] AM Lab 09/24/17 05:11 Ordered INR,PT,PROTHROMBIN TIME [COAG] AM Lab 09/25/17 05:11 Ordered INR,PT,PROTHROMBIN TIME [COAG] AM Lab 09/26/17 05:11 Ordered TROPONIN I [CHEM] Routine Lab 09/18/17 07:00 Ordered Acetaminophen [Tylenol] Med 09/18/17 04:19 Ordered 650 mg PO Q4H PRN Albuterol [Proventil Neb Soln] Med 09/18/17 04:13 Ordered 2.5 mg NEB Q6HRRT PRN Albuterol/Ipratropium [DuoNeb 3.0-0.5 MG/3 ML] Med 09/18/17 09:00 Ordered 3 ml INH QID Amoxicillin/Clavulanate K [Augmentin 875 MG/125 MG] Med 09/18/17 09:00 Ordered 1 tab PO BID Aspirin [Halfprin] Med 09/18/17 09:00 Ordered 81 mg PO DAILY Carvedilol [Coreg] Med 09/18/17 09:00 Ordered 6.25 mg PO BID Furosemide [Lasix] Med 09/18/17 09:00 Ordered 20 mg PO BID Loperamide [Imodium] Med 09/18/17 04:13 Ordered 2 mg PO TID PRN Nitroglycerin [Nitrostat] Med 09/18/17 04:13 Ordered 0.4 mg SL ASDIRECTED PRN Ondansetron [Zofran] Med 09/18/17 04:19 Ordered 4 mg IVPUSH Q6H PRN Potassium Chloride [Klor-Con 10] Med 09/19/17 08:00 Ordered 20 meq PO WITHBREAKFAST Simvastatin [Simvastatin] Med 09/18/17 21:00 Ordered 40 mg PO BEDTIME Sodium Chloride 0.9% [Normal Saline] 1,000 ml Med 09/18/17 03:45 Active IV ASDIRECTED Sodium Chloride 0.9% [Saline Flush] Med 09/18/17 04:19 Ordered 10 ml FLUSH ASDIRECTED PRN Tamsulosin [Flomax] Med 09/18/17 09:00 Ordered 0.4 mg PO DAILY Warfarin Pharmacy to Dose [Pharmacy to Dose - Warfarin] Med 09/18/17 04:30 Ordered 1 dose .XX ASDIRECTED traZODone Med 09/18/17 04:15 Ordered 50 mg PO QPM Antiembolic Hose [OM.PC] Per Unit Routine Oth 09/18/17 04:20 Ordered Peripheral IV Insertion Adult [OM.PC] Routine Oth 09/18/17 04:19 Ordered Resuscitation Status Routine Resus Stat 09/18/17 04:19 Ordered Medication Orders Acetaminophen (Tylenol) 650 mg PO Q4H PRN PRN Reason: Pain (Mild 1-3)/fever Albuterol (Proventil Neb Soln) 2.5 mg NEB Q6HRRT PRN PRN Reason: Dyspnea Albuterol/Ipratropium (Duoneb 3.0-0.5 Mg/3 Ml) 3 ml INH QID NADINE Amoxicillin/Clavulanate Potassium (Augmentin 875 Mg/125 Mg) 1 tab PO BID NADINE Aspirin (Halfprin) 81 mg PO DAILY [facility] Carvedilol (Coreg) 6.25 mg PO BID [facility] Furosemide (Lasix) 20 mg PO BIDDIURETIC [facility]INE Sodium Chloride (Normal Saline) 1,000 mls @ 75 mls/hr IV ASDIRECTED NADINE Last Admin: 09/18/17 03:37 Dose: 150 mls/hr Loperamide HCl (Imodium) 2 mg PO TID PRN PRN Reason: diarrhea Nitroglycerin (Nitrostat) 0.4 mg SL ASDIRECTED PRN PRN Reason: chest pain Ondansetron HCl (Zofran) 4 mg IVPUSH Q6H PRN PRN Reason: Nausea/Vomiting Potassium Chloride (Klor-Con 10) 20 meq PO WITHBREAKFAST NADINE Simvastatin (Zocor) 40 mg PO BEDTIME NADINE Sodium Chloride (Saline Flush) 10 ml FLUSH ASDIRECTED PRN PRN Reason: Keep Vein Open Tamsulosin HCl (Flomax) 0.4 mg PO DAILY [facility] Trazodone HCl (Trazodone) 50 mg PO BEDTIME [facility] Warfarin Sodium (Pharmacy To Dose - Warfarin) 1 dose .XX ASDIRECTED [facility] Assessment/Plan Comment:: The patient is an 86-year-old gentleman who was brought in with an episode of unresponsiveness. 1. Unresponsiveness The differential diagnosis includes possible TIA We'll monitor neurologic symptoms. The patient is already anticoagulated, on aspirin, continue statin. The patient had a carotid ultrasound July 2017. Showed a right 0-50% and left 50-69% internal carotid artery stenosis This was recently evaluated by Dr. Becker, continue with observation was suggested. No acute stroke noted on the noncontrast CT head on this admission. The patient might have had arrhythmia, pacemaker dysfunction. We'll monitor on telemetry Acute ME is less likely, recheck troponin Hypotension is possible, we will hold the hydralazine monitor blood pressure and heart rate. No significant electrolyte abnormalities, will monitor. 2. History of diet-controlled diabetes Follow blood sugars 3. Coronary artery disease, chronic diastolic congestive heart failure No apparent acute exacerbation. Continue aspirin, Coreg, Lasix Hold hydralazine 4. Mechanical aortic valve Continue Coumadin with target INR of 2.5-3.5 5. 10 mm nodular opacity overlying the left costophrenic angle Possible pulmonary nodule or nipple shadow We will repeat PA and lateral chest x-ray when able 6. Chronic hypoxemic respiratory failure requiring 2.5 L nasal cannula oxygen at home Continue oxygen supplementation 7. DVT prophylaxis with full dose anticoagulation 8. CODE STATUS was discussed with the daughter Wish DNR CODE STATUS
[2017-09-18] MEDS: traZODone 50 MG Tab PO SCH ×2 (07:17→20:56)
[2017-09-18] MEDS ORDERED: Amoxicillin/Clavulanate K 875-125 MG Tab PO SCH (09:00)
[2017-09-18] MEDS ORDERED: Carvedilol 6.25 MG Tab PO SCH (09:00)
[2017-09-18] MEDS: Albuterol/Ipratropium 3.0-0.5 MG/3 ML Neb Soln INH SCH ×4 (09:40→20:57)
[2017-09-18] MEDS: Aspirin 81 MG Tab.EC PO SCH (10:19)
[2017-09-18] MEDS: Amoxicillin/Clavulanate K 500-125 MG Tab PO SCH ×2 (10:19→20:55)
[2017-09-18] MEDS: Tamsulosin 0.4 MG Cap.ER PO SCH (10:19)
[2017-09-18] MEDS: Furosemide 20 MG Tab PO SCH ×2 (10:22→15:09)
--- NOTE | 2017-09-18 12:20 | PCM.PN ---
- General Info Date of Service: 09/18/17 Admission Dx/Problem (Free Text): Admission Diagnosis/Problem Admission Diagnosis/Problem Unresponsive Subjective Update: Overnight the patient remained stable. He is alert, communicating minimally. He appears to be comfortable and sleeping most of the time. According to family discussed this what he is doing at home except that he is usually more communicating. He has been moving extremities. Minimal oral intake Nursing staff concerned about swallowing dysfunction. No complains. Met with family at bedside. Functional Status: Reports: Pain Controlled. Denies: Tolerating Diet - Review of Systems General: Reports: Weakness (Minimal oral intake), Fatigue. Denies: Fever Pulmonary: Denies: Shortness of Breath Cardiovascular: Denies: Chest Pain Gastrointestinal: Denies: Abdominal Pain - Patient Data Vitals - Most Recent: Last Vital Signs Temp 36.2 C 09/18/17 11:26 Pulse 59 L 09/18/17 11:26 Resp 20 09/18/17 11:26 BP 80/40 L 09/18/17 11:26 Pulse Ox 95 09/18/17 11:26 Weight - Most Recent: 59.693 kg Lab Results Last 24 Hours: Laboratory Results - last 24 hr 09/18/17 09/18/17 09/18/17 Range/Units 06:30 06:30 06:30 WBC 6.5 (5.0-10.0) 10^3/uL RBC 3.49 L (4.6-6.2) 10^6/uL Hgb 10.9 L D (14.0-18.0) g/dL Hct 33.9 L (40.0-54.0) % MCV 97.1 (80-100) fL MCH 31.2 (27.0-34.0) pg MCHC 32.2 L (33.0-35.0) g/dL Plt Count 156 D (150-450) 10^3/uL Neut % (Auto) 84.8 H (42.2-75.2) % Lymph % (Auto) 8.8 L (20.5-50.1) % Owen % (Auto) 6.2 (2-8) % Eos % (Auto) 0.2 L (1.0-3.0) % Baso % (Auto) 0.0 (0.0-1.0) % Sodium 138 (135-145) mmol/L Potassium 5.0 (3.6-5.0) mmol/L Chloride 107 (101-111) mmol/L Carbon Dioxide 24.0 (21.0-31.0) mmol/L Anion Gap 12.0 BUN 17 (7-18) mg/dL Creatinine 1.9 H (0.6-1.3) mg/dL Est Cr Clr Drug Dosing 22.22 mL/min Estimated GFR (MDRD) 34 Glucose 102 (74-105) mg/dL Calcium 7.5 L (8.4-10.2) mg/dl Troponin I < 0.02 (0.00-0.02) ng/ml Med Orders - Current: Current Medications Acetaminophen (Tylenol) 650 mg PO Q4H PRN PRN Reason: Pain (Mild 1-3)/fever Albuterol (Proventil Neb Soln) 2.5 mg NEB Q6HRRT PRN PRN Reason: Dyspnea Albuterol/Ipratropium (Duoneb 3.0-0.5 Mg/3 Ml) 3 ml INH QIDRT [facility] Last Admin: 09/18/17 09:40 Dose: Not Given Amoxicillin/Clavulanate Potassium (Augmentin 500 Mg\125 Mg) 0.5 tab PO BID [facility] Last Admin: 09/18/17 10:19 Dose: 0.5 tab Aspirin (Halfprin) 81 mg PO DAILY [facility] Last Admin: 09/18/17 10:19 Dose: 81 mg Carvedilol (Coreg) 6.25 mg PO BIDMEALS [facility] Furosemide (Lasix) 20 mg PO BIDDIURETIC [facility] Last Admin: 09/18/17 10:22 Dose: 20 mg Loperamide HCl (Imodium) 2 mg PO TID PRN PRN Reason: diarrhea Methyl Salicylate (Icy Hot Cream) 0 gm TOP BID [facility] Nitroglycerin (Nitrostat) 0.4 mg SL ASDIRECTED PRN PRN Reason: chest pain Ondansetron HCl (Zofran) 4 mg IVPUSH Q6H PRN PRN Reason: Nausea/Vomiting Potassium Chloride (Klor-Con 10) 20 meq PO WITHBREAKFAST [facility] Simvastatin (Zocor) 40 mg PO BEDTIME [facility] Sodium Chloride (Saline Flush) 10 ml FLUSH ASDIRECTED PRN PRN Reason: Keep Vein Open Tamsulosin HCl (Flomax) 0.4 mg PO DAILY [facility] Last Admin: 09/18/17 10:19 Dose: 0.4 mg Trazodone HCl (Trazodone) 50 mg PO BEDTIME [facility] Last Admin: 09/18/17 07:17 Dose: Not Given Warfarin Sodium (Pharmacy To Dose - Warfarin) 1 dose .XX ASDIRECTED [facility] Warfarin Sodium (Coumadin) 1 mg PO ONETIME ONE Stop: 09/18/17 14:01 Discontinued Medications Amoxicillin/Clavulanate Potassium (Augmentin 875 Mg/125 Mg) 1 tab PO BID [facility] Carvedilol (Coreg) 6.25 mg PO BID [facility] Last Admin: 09/18/17 10:18 Dose: 6.25 mg Sodium Chloride (Normal Saline) 1,000 mls @ 75 mls/hr IV ASDIRECTED [facility] Last Admin: 09/18/17 03:37 Dose: 150 mls/hr - Exam General: Alert, Oriented HEENT: No: Pupils Equal Neck: Supple Lungs: Clear to Auscultation Cardiovascular: Regular Rate, Regular Rhythm GI/Abdominal Exam: Normal Bowel Sounds, Soft Extremities: No Pedal Edema - Problem List & Annotations (1) CKD (chronic kidney disease) stage 3, GFR 30-59 ml/min SNOMED Code(s): 384216664 Code(s): N18.3 - CHRONIC KIDNEY DISEASE, STAGE 3 (MODERATE) Status: Acute Current Visit: No (2) Hypotension due to medication Status: Acute Current Visit: Yes (3) Syncope SNOMED Code(s): 288731189 Code(s): R55 - SYNCOPE AND COLLAPSE Status: Acute Current Visit: No Qualifiers: Syncope type: unspecified Qualified Code(s): R55 - Syncope and collapse - Problem List Review Problem List Initiated/Reviewed/Updated: Yes - My Orders Last 24 Hours: My Active Orders 09/18/17 04:22 Telemetry Monitoring [Cardiac Monitoring] [RC] . DIRECTED 09/18/17 09:00 Amoxicillin/Clavulanate K [Augmentin 500 MG\125 MG] 0.5 tab PO BID 09/18/17 11:45 Menthol/Methyl Salicylate [Icy Hot Cream] 0 gm TOP BID 09/18/17 11:46 OXYACETYLENE BURNER Eval and Treat [OXYACETYLENE BURNER Evaluation and Treatment] [CONS] Routine 09/18/17 11:47 OT Evaluation and Treatment [CONS] Routine 09/18/17 14:00 Warfarin [Coumadin] 1 mg PO ONETIME ONE 09/18/17 18:00 Carvedilol [Coreg] 6.25 mg PO BIDMEALS 09/19/17 05:15 BASIC METABOLIC PANEL,BMP [CHEM] AM CBC WITH AUTO DIFF [HEME] AM 09/19/17 08:00 Potassium Chloride [Klor-Con 10] 20 meq PO WITHBREAKFAST - Plan Plan:: The patient is an 86-year-old gentleman who was brought in with an episode of unresponsiveness. 1. Unresponsiveness resolved but still minimally communicative appear to move extremities and following commands. Verbally Not answering questions, The differential diagnosis includes possible TIA We'll monitor neurologic symptoms. The patient is already anticoagulated, on aspirin, continue statin. The patient had a carotid ultrasound July 2017. Showed a right 0-50% and left 50-69% internal carotid artery stenosis This was recently evaluated by Dr. Becker, continue with observation was suggested. No acute stroke noted on the noncontrast CT head on this admission. The patient might have had arrhythmia, pacemaker dysfunction. no arrythmia telemetry Acute IA is less likely, normal repeated troponin Hypotension is noted, we will hold the hydralazine monitor blood pressure and heart rate. Has been receiving IV FLuids No significant electrolyte abnormalities, will monitor. 2. History of diet-controlled diabetes Follow blood sugars 3. Coronary artery disease, chronic diastolic congestive heart failure No apparent acute exacerbation. Continue aspirin, Coreg, Lasix Hold hydralazine 4. Mechanical aortic valve Continue Coumadin with target INR of 2.5-3.5 5. 10 mm nodular opacity overlying the left costophrenic angle Possible pulmonary nodule or nipple shadow We will repeat PA and lateral chest x-ray when otherwise stable 6. Chronic hypoxemic respiratory failure requiring 2.5 L nasal cannula oxygen at home Continue oxygen supplementation 7. DVT prophylaxis with full dose anticoagulation 8. CODE STATUS was discussed with the daughter at the time of admission and confirmed with another daughter today Wish DNR CODE STATUS
[2017-09-18] MEDS: Menthol/Methyl Salicylate 85 GM Tube TOP SCH ×2 (13:44→20:58)
--- NOTE | 2017-09-18 17:19 | EKG ---
09/18/2017 - YOKO CROWE - EKG per my reading shows sinus rhythm with incomplete left bundle branch block. [facility] /[id number]
[2017-09-18] MEDS: Carvedilol 6.25 MG Tab PO SCH (17:36)
[2017-09-18] MEDS: Simvastatin 40 MG Tab PO SCH (20:57)
[2017-09-19] MEDS: Albuterol/Ipratropium 3.0-0.5 MG/3 ML Neb Soln INH SCH ×4 (07:00→20:11)
[2017-09-19 07:08] LABS: ANION GAP 10.2
[2017-09-19] MEDS: Amoxicillin/Clavulanate K 500-125 MG Tab PO SCH ×2 (08:59→20:11)
[2017-09-19] MEDS: Potassium Chloride 10 MEQ Tab.ER PO SCH (08:59)
[2017-09-19] MEDS: Furosemide 20 MG Tab PO SCH ×2 (08:59→13:18)
[2017-09-19] MEDS: Tamsulosin 0.4 MG Cap.ER PO SCH (09:00)
[2017-09-19] MEDS: Aspirin 81 MG Tab.EC PO SCH (09:00)
[2017-09-19] MEDS: Carvedilol 6.25 MG Tab PO SCH ×2 (09:14→17:21)
[2017-09-19] MEDS: Menthol/Methyl Salicylate 85 GM Tube TOP SCH ×2 (09:25→20:12)
--- NOTE | 2017-09-19 10:35 | PCM.PN ---
- General Info Date of Service: 09/19/17 Admission Dx/Problem (Free Text): Admission Diagnosis/Problem Admission Diagnosis/Problem Unresponsive Subjective Update: the patient remained stable. He is alert, communicating more. He appears to be comfortable and sleeping most of the time but this morning he is engaging in conversation. He is able to tell me how old he is. He has been moving extremities. Minimal oral intake Nursing staff concerned about swallowing dysfunction. Met with family at bedside. Functional Status: Reports: Pain Controlled. Denies: Tolerating Diet (Minimal oral intake) - Review of Systems General: Denies: Fever Pulmonary: Denies: Shortness of Breath Cardiovascular: Denies: Chest Pain Gastrointestinal: Denies: Abdominal Pain Genitourinary: Denies: Dysuria - Patient Data Vitals - Most Recent: Last Vital Signs Temp 36.3 C 09/19/17 07:38 Pulse 66 09/19/17 09:14 Resp 20 09/19/17 07:38 BP 137/75 09/19/17 09:14 Pulse Ox 96 09/19/17 07:38 Weight - Most Recent: 59.148 kg I&O - Last 24 Hours: Intake & Output 09/18/17 09/19/17 09/19/17 22:59 06:59 14:59 Intake Total 1069 300 Balance 1069 300 Lab Results Last 24 Hours: Laboratory Results - last 24 hr 09/19/17 09/19/17 09/19/17 Range/Units 06:23 06:23 06:23 WBC 5.9 (5.0-10.0) 10^3/uL RBC 3.00 L (4.6-6.2) 10^6/uL Hgb 9.4 L D (14.0-18.0) g/dL Hct 29.6 L (40.0-54.0) % MCV 98.7 (80-100) fL MCH 31.3 (27.0-34.0) pg MCHC 31.8 L (33.0-35.0) g/dL Plt Count 148 L (150-450) 10^3/uL Neut % (Auto) 70.9 (42.2-75.2) % Lymph % (Auto) 18.5 L (20.5-50.1) % Gage % (Auto) 7.9 (2-8) % Eos % (Auto) 2.5 (1.0-3.0) % Baso % (Auto) 0.2 (0.0-1.0) % PT 43.5 H (9.0-12.0) SEC INR 4.3 H (0.9-1.2) Sodium 136 (135-145) mmol/L Potassium 4.2 (3.6-5.0) mmol/L Chloride 107 (101-111) mmol/L Carbon Dioxide 23.0 (21.0-31.0) mmol/L Anion Gap 10.2 BUN 18 (7-18) mg/dL Creatinine 2.0 H (0.6-1.3) mg/dL Est Cr Clr Drug Dosing 21.77 mL/min Estimated GFR (MDRD) 32 Glucose 81 (74-105) mg/dL Calcium 7.3 L (8.4-10.2) mg/dl Med Orders - Current: Current Medications Acetaminophen (Tylenol) 650 mg PO Q4H PRN PRN Reason: Pain (Mild 1-3)/fever Albuterol (Proventil Neb Soln) 2.5 mg NEB Q6HRRT PRN PRN Reason: Dyspnea Albuterol/Ipratropium (Duoneb 3.0-0.5 Mg/3 Ml) 3 ml INH QIDRT [facility] Last Admin: 09/19/17 07:00 Dose: 3 ml Amoxicillin/Clavulanate Potassium (Augmentin 500 Mg\125 Mg) 0.5 tab PO BID [facility] Last Admin: 09/19/17 08:59 Dose: 0.5 tab Aspirin (Halfprin) 81 mg PO DAILY [facility] Last Admin: 09/19/17 09:00 Dose: 81 mg Carvedilol (Coreg) 6.25 mg PO BIDMEALS [facility] Last Admin: 09/19/17 09:14 Dose: 6.25 mg Furosemide (Lasix) 20 mg PO BIDDIURETIC [facility] Last Admin: 09/19/17 08:59 Dose: 20 mg Loperamide HCl (Imodium) 2 mg PO TID PRN PRN Reason: diarrhea Methyl Salicylate (Icy Hot Cream) 0 gm TOP BID [facility] Last Admin: 09/19/17 09:25 Dose: Not Given Nitroglycerin (Nitrostat) 0.4 mg SL ASDIRECTED PRN PRN Reason: chest pain Ondansetron HCl (Zofran) 4 mg IVPUSH Q6H PRN PRN Reason: Nausea/Vomiting Potassium Chloride (Klor-Con 10) 20 meq PO WITHBREAKFAST [facility] Last Admin: 09/19/17 08:59 Dose: 20 meq Simvastatin (Zocor) 40 mg PO BEDTIME [facility] Last Admin: 09/18/17 20:57 Dose: 40 mg Sodium Chloride (Saline Flush) 10 ml FLUSH ASDIRECTED PRN PRN Reason: Keep Vein Open Tamsulosin HCl (Flomax) 0.4 mg PO DAILY [facility] Last Admin: 09/19/17 09:00 Dose: 0.4 mg Trazodone HCl (Trazodone) 50 mg PO BEDTIME [facility] Last Admin: 09/18/17 20:56 Dose: 50 mg Warfarin Sodium (Pharmacy To Dose - Warfarin) 1 dose .XX ASDIRECTED [facility] Discontinued Medications Amoxicillin/Clavulanate Potassium (Augmentin 875 Mg/125 Mg) 1 tab PO BID [facility] Carvedilol (Coreg) 6.25 mg PO BID [facility] Last Admin: 09/18/17 10:18 Dose: 6.25 mg Sodium Chloride (Normal Saline) 1,000 mls @ 75 mls/hr IV ASDIRECTED [facility] Last Admin: 09/18/17 03:37 Dose: 150 mls/hr Warfarin Sodium (Coumadin) 1 mg PO ONETIME ONE Stop: 09/18/17 14:01 Last Admin: 09/18/17 15:09 Dose: 1 mg - Exam General: Alert, Oriented (To his age and family) Neck: Supple Lungs: Clear to Auscultation, Normal Respiratory Effort Cardiovascular: Regular Rate, Regular Rhythm Extremities: No Pedal Edema Neurological: No New Focal Deficit Psy/Mental Status: Alert - Problem List & Annotations (1) CKD (chronic kidney disease) stage 3, GFR 30-59 ml/min SNOMED Code(s): 388472468 Code(s): N18.3 - CHRONIC KIDNEY DISEASE, STAGE 3 (MODERATE) Status: Acute Current Visit: No (2) Hypotension due to medication Status: Acute Current Visit: Yes (3) Syncope SNOMED Code(s): 716939806 Code(s): R55 - SYNCOPE AND COLLAPSE Status: Acute Current Visit: No Qualifiers: Syncope type: unspecified Qualified Code(s): R55 - Syncope and collapse - Problem List Review Problem List Initiated/Reviewed/Updated: Yes - My Orders Last 24 Hours: My Active Orders 09/18/17 11:45 Menthol/Methyl Salicylate [Icy Hot Cream] 0 gm TOP BID 09/18/17 11:46 JIG WORKER Eval and Treat [JIG WORKER Evaluation and Treatment] [CONS] Routine 09/18/17 11:47 OT Evaluation and Treatment [CONS] Routine 09/18/17 13:05 RT Aerosol Therapy [RC] ASDIRECTED 09/18/17 17:20 Dietary Supplements [RC] TIDAC 09/18/17 18:00 Carvedilol [Coreg] 6.25 mg PO BIDMEALS 09/19/17 08:00 Potassium Chloride [Klor-Con 10] 20 meq PO WITHBREAKFAST 09/19/17 10:30 OT Evaluation and Treatment [CONS] Routine PT Evaluation and Treatment [CONS] Routine - Plan Plan:: The patient is an 86-year-old gentleman who was brought in with an episode of unresponsiveness. 1. Unresponsiveness resolved More communicative appear to move extremities and following commands. The differential diagnosis includes possible TIA We'll monitor neurologic symptoms. The patient is already anticoagulated, on aspirin, continue statin. The patient had a carotid ultrasound July 2017. Showed a right 0-50% and left 50-69% internal carotid artery stenosis This was recently evaluated by Dr. Becker, continue with observation was suggested. No acute stroke noted on the noncontrast CT head on this admission. The patient might have had arrhythmia, pacemaker dysfunction. no arrythmia telemetry Acute [place] is less likely, normal repeated troponin Hypotension is noted, we will continue to hold the hydralazine and monitor blood pressure and heart rate. Stop IV FLuids No significant electrolyte abnormalities. 2. History of diet-controlled diabetes Follow blood sugars 3. Coronary artery disease, chronic diastolic congestive heart failure No apparent acute exacerbation. Continue aspirin, Coreg, Lasix Hold hydralazine 4. Mechanical aortic valve Hold Coumadin with target INR of 2.5-3.5 5. 10 mm nodular opacity overlying the left costophrenic angle Possible pulmonary nodule or nipple shadow We will repeat PA and lateral chest x-ray today 6. Chronic hypoxemic respiratory failure requiring 2.5 L nasal cannula oxygen at home Continue oxygen supplementation 7. DVT prophylaxis with full dose anticoagulation 8. CODE STATUS was discussed with the daughter at the time of admission and confirmed with another daughter today Wish DNR CODE STATUS Discussed discharge planning with family as well Plan to discharge home, we'll order physical and occupational therapy evaluation today, will likely need home care.
--- NOTE | 2017-09-19 12:49 | CR ---
Clinical history: 86-year-old male reported to have "nodule" left lung base on previous days exam. Interpretation: Upright AP chest with nipple markers confirms nodular nipple shadow in the left lung base. Sternotomy wires, external net making supervisor leads and cardiac pacemaker (leads intact). Normal cardiac silhouette without cephalization of flow or signs of alveolar edema but there is asymmetric dependen t pleural effusion right base.
[2017-09-19] MEDS: Simvastatin 40 MG Tab PO SCH (20:11)
[2017-09-19] MEDS: traZODone 50 MG Tab PO SCH (20:11)
[2017-09-20] MEDS: Albuterol/Ipratropium 3.0-0.5 MG/3 ML Neb Soln INH SCH ×2 (06:40→11:18)
[2017-09-20] MEDS: Furosemide 20 MG Tab PO SCH (09:22)
[2017-09-20] MEDS: Aspirin 81 MG Tab.EC PO SCH (09:23)
[2017-09-20] MEDS: Potassium Chloride 10 MEQ Tab.ER PO SCH (09:23)
[2017-09-20] MEDS: Amoxicillin/Clavulanate K 500-125 MG Tab PO SCH (09:26)
[2017-09-20] MEDS: Carvedilol 6.25 MG Tab PO SCH (09:27)
[2017-09-20] MEDS: Tamsulosin 0.4 MG Cap.ER PO SCH (09:28)
[2017-09-20 11:05] VITALS: BP 127/50
--- NOTE | 2017-09-20 11:42 | PCM.DCSUM1 ---
Discharge Summary - Hospital Course Free Text/Narrative:: The patient is an 86-year-old gentleman who was brought in with an episode of unresponsiveness. 1. Unresponsiveness resolved Communicative appear to move extremities and following commands. The differential diagnosis includes possible TIA The patient is already anticoagulated, on aspirin, continue statin. The patient had a carotid ultrasound July 2017. Showed a right 0-50% and left 50-69% internal carotid artery stenosis This was recently evaluated by Dr. Becker, continue with observation was suggested. No acute stroke noted on the noncontrast CT head on this admission. The patient might have had arrhythmia, pacemaker dysfunction. no arrythmia telemetry Acute [place] is less likely, normal repeated troponin Hypotension is noted, stopped hydralazine BP improved No significant electrolyte abnormalities. 2. History of diet-controlled diabetes Follow blood sugars 3. Coronary artery disease, chronic diastolic congestive heart failure No apparent acute exacerbation. Continue aspirin, Coreg, Lasix Hold hydralazine 4. Mechanical aortic valve continue Coumadin with target INR of 2.5-3.5 5. Chronic hypoxemic respiratory failure requiring 2.5 L nasal cannula oxygen at home Continue oxygen supplementation 7. DVT prophylaxis with full dose anticoagulation Plan to discharge home with home care. - Discharge Data Discharge Date: 09/20/17 Discharge Disposition: Home, W Home Health Agency 06 Condition: Good - Discharge Diagnosis/Problem(s) (1) CKD (chronic kidney disease) stage 3, GFR 30-59 ml/min SNOMED Code(s): 380544539 ICD Code: N18.3 - CHRONIC KIDNEY DISEASE, STAGE 3 (MODERATE) Status: Acute Current Visit: No (2) Hypotension due to medication Status: Acute Current Visit: Yes (3) Syncope SNOMED Code(s): 959295676 ICD Code: R55 - SYNCOPE AND COLLAPSE Status: Acute Current Visit: No Qualifiers: Syncope type: unspecified Qualified Code(s): R55 - Syncope and collapse - Patient Summary/Data Consults: Consultations 09/18/17 11:46 NEUROSURGERY PHYSICIAN Eval and Treat [NEUROSURGERY PHYSICIAN Evaluation and Treatment] [CONS] Routine 09/18/17 11:47 OT Evaluation and Treatment [CONS] Routine 09/19/17 10:30 OT Evaluation and Treatment [CONS] Routine PT Evaluation and Treatment [CONS] Routine - Patient Instructions Diet: Usual Diet as Tolerated Activity: As Tolerated - Discharge Plan Home Medications: Home Meds Albuterol [Ventolin HFA] 2 puff INH Q4H PRN 09/19/14 [History] Carvedilol [Coreg] 6.25 mg PO BID 12/23/15 [History] Furosemide [Lasix] 20 mg PO BID 12/23/15 [History] Albuterol [Proventil Neb Soln] 2.5 mg NEB Q6HRRT PRN 02/18/16 [History] Aspirin [Halfprin] 81 mg PO DAILY 02/18/16 [History] Loperamide [Imodium] 4 mg PO TID PRN 04/03/17 [History] Warfarin Sodium [Coumadin] 1.5 mg PO MOWEFR 04/03/17 [History] traZODone HCl [Trazodone HCl] 100 mg PO QPM 04/03/17 [History] Acetaminophen [Acetaminophen 8 Hour] 650 mg PO Q8HR PRN 05/12/17 [History] Ipratropium/Albuterol Sulfate [IJD: DuoNeb 3.0-0.5 MG/3 ML] 3 ml INH QID [History] Nitroglycerin [Nitrostat] 0.4 mg SL ASDIRECTED PRN 05/12/17 [History] Warfarin Sodium [Jantoven] 3 mg PO SUTUTHSA 09/18/17 [History] Ketorolac [Acular 0.5% Ophth Soln] 1 drop EYERT BID 09/19/17 [History] Non-Formulary Medication [NF Drug] 1 drop EYERT QID 09/19/17 [History] Potassium Chloride [Klor-Con 10] 20 meq PO WITHBREAKFAST tab.er 09/20/17 [Rx] Tamsulosin [Flomax] 0.4 mg PO DAILY cap.er 09/20/17 [Rx] Referrals: Provider,Unknown [Ordering Only Provider] - (in 2-3 days) - Discharge Summary/Plan Comment DC Time >30 min.: Yes (home care referral) - General Info Date of Service: 09/20/17 Subjective Update: the patient remained stable. He is alert, communicating well. ambulating with help. - Review of Systems General: Denies: Fever Pulmonary: Denies: Shortness of Breath Cardiovascular: Denies: Chest Pain Gastrointestinal: Denies: Abdominal Pain Neurological: Denies: Confusion - Patient Data Vitals - Most Recent: Last Vital Signs Temp 36.1 C 09/20/17 11:05 Pulse 62 09/20/17 11:05 Resp 20 09/20/17 11:05 BP 127/50 L 09/20/17 11:05 Pulse Ox 96 09/20/17 11:05 Weight - Most Recent: 60.583 kg I&O - Last 24 hours: Intake & Output 09/19/17 09/20/17 09/20/17 22:59 06:59 14:59 Intake Total 150 250 Balance 150 250 Lab Results - Last 24 hrs: Laboratory Results - last 24 hr 09/20/17 Range/Units 06:23 PT 36.4 H (9.0-12.0) SEC INR 3.6 H (0.9-1.2) Med Orders - Current: Current Medications Acetaminophen (Tylenol) 650 mg PO Q4H PRN PRN Reason: Pain (Mild 1-3)/fever Albuterol (Proventil Neb Soln) 2.5 mg NEB Q6HRRT PRN PRN Reason: Dyspnea Albuterol/Ipratropium (Duoneb 3.0-0.5 Mg/3 Ml) 3 ml INH QIDRT [facility] Last Admin: 09/20/17 11:18 Dose: 3 ml Amoxicillin/Clavulanate Potassium (Augmentin 500 Mg\125 Mg) 0.5 tab PO BID [facility] Last Admin: 09/20/17 09:26 Dose: 0.5 tab Aspirin (Halfprin) 81 mg PO DAILY [facility] Last Admin: 09/20/17 09:23 Dose: 81 mg Carvedilol (Coreg) 6.25 mg PO BIDMEALS [facility] Last Admin: 09/20/17 09:27 Dose: Not Given Furosemide (Lasix) 20 mg PO BIDDIURETIC [facility] Last Admin: 09/20/17 09:22 Dose: 20 mg Loperamide HCl (Imodium) 2 mg PO TID PRN PRN Reason: diarrhea Methyl Salicylate (Icy Hot Cream) 0 gm TOP BID [facility] Last Admin: 09/19/17 20:12 Dose: Not Given Nitroglycerin (Nitrostat) 0.4 mg SL ASDIRECTED PRN PRN Reason: chest pain Ondansetron HCl (Zofran) 4 mg IVPUSH Q6H PRN PRN Reason: Nausea/Vomiting Potassium Chloride (Klor-Con 10) 20 meq PO WITHBREAKFAST [facility] Last Admin: 09/20/17 09:23 Dose: 20 meq Simvastatin (Zocor) 40 mg PO BEDTIME [facility] Last Admin: 09/19/17 20:11 Dose: 40 mg Sodium Chloride (Saline Flush) 10 ml FLUSH ASDIRECTED PRN PRN Reason: Keep Vein Open Tamsulosin HCl (Flomax) 0.4 mg PO DAILY [facility] Last Admin: 09/20/17 09:28 Dose: 0.4 mg Trazodone HCl (Trazodone) 50 mg PO BEDTIME [facility] Last Admin: 09/19/17 20:11 Dose: 50 mg Warfarin Sodium (Pharmacy To Dose - Warfarin) 1 dose .XX ASDIRECTED [facility] Warfarin Sodium (Coumadin) 0.5 mg PO ONETIME ONE Stop: 09/20/17 14:01 Discontinued Medications Amoxicillin/Clavulanate Potassium (Augmentin 875 Mg/125 Mg) 1 tab PO BID [facility] Carvedilol (Coreg) 6.25 mg PO BID [facility] Last Admin: 09/18/17 10:18 Dose: 6.25 mg Sodium Chloride (Normal Saline) 1,000 mls @ 75 mls/hr IV ASDIRECTED [facility] Last Admin: 09/18/17 03:37 Dose: 150 mls/hr No Warfarin (Today ) 0 each PO ONETIME ONE Stop: 09/19/17 14:01 Last Admin: 09/19/17 13:40 Dose: Not Given Warfarin Sodium (Coumadin) 1 mg PO ONETIME ONE Stop: 09/18/17 14:01 Last Admin: 09/18/17 15:09 Dose: 1 mg - Exam General: Reports: Alert, No Acute Distress Neck: Reports: Supple Lungs: Reports: Clear to Auscultation, Normal Respiratory Effort Cardiovascular: Reports: Regular Rate, Regular Rhythm GI/Abdominal Exam: Normal Bowel Sounds, Soft, Non-Tender Extremities: No Pedal Edema *Q Meaningful Use (DIS) - VTE *Q VTE Criteria *Q: - Stroke *Q Stroke Criteria *Q: - AMI *Q AMI Criteria *Q:
[2017-09-20] MEDS: Menthol/Methyl Salicylate 85 GM Tube TOP SCH (11:47)
== END 2017-09-20 13:15 | disposition home health service (06) ==
LOC: DL.ED 02:01 → UNDOADMIN 03:32 → DL.MS 03:32 → INTOOBSV 04:19
PROVIDERS: ADMIT Internal Medicine; ATTEND Internal Medicine
DX: R40.20 Unspecified coma (principal); I95.2 Hypotension due to drugs; R55 Syncope and collapse; E11.22 Type 2 diabetes mellitus with diabetic chronic kidney disease; I13.0 Hypertensive heart and chronic kidney disease with heart failure and stage 1 through stage 4 chronic kidney disease, or unspecified chronic kidney disease; N18.3 Chronic kidney disease, stage 3 (moderate); I25.10 Atherosclerotic heart disease of native coronary artery without angina pectoris; J45.909 Unspecified asthma, uncomplicated; N40.0 Benign prostatic hyperplasia without lower urinary tract symptoms; G45.9 Transient cerebral ischemic attack, unspecified; F32.9 Major depressive disorder, single episode, unspecified; Z79.82 Long term (current) use of aspirin; Z79.01 Long term (current) use of anticoagulants; Z79.899 Other long term (current) drug therapy; Z91.011 Allergy to milk products; Z88.8 Allergy status to other drugs, medicaments and biological substances; Z95.2 Presence of prosthetic heart valve
CPT/HCPCS: 36415; 70450; 71045; 80048; 80053; 84484; 85025; 85610; 85730; 93005; 93010; 94640; 97162; 97166; 99285; A9270; J7030; 96360; 96361; 99217; 99218; 99225; 99283; G0378

== ENCOUNTER 2017-10-11 11:56 | Emergency (ER) | payer MEDICARE, OTHER ==
[~2017-10-11 11:56] MED LIST: Sodium Chloride 0.9% 10 ML Syringe FLUSH PRN
--- NOTE | 2017-10-11 11:56 | EDM.PDOC ---
ED HPI GENERAL MEDICAL PROBLEM - General Chief Complaint: General Stated Complaint: IN BY AMBULANCE Time Seen by Provider: 10/11/17 11:55 Source of Information: Reports: Patient, EMS, Family, Old Records, RN, RN Notes Reviewed History Limitations: Reports: No Limitations - History of Present Illness INITIAL COMMENTS - FREE TEXT/NARRATIVE: Arrives from home by ambulance with report that family found pt to be very weak with decreased level of consciousness and low BP. Pt not able to provide any information for HPI. Pt's son states pt was in is normal state of health and function this morning, then at 1030HRS pt was at the table and became pale and minimally responsive. A home health nurse was present and found pt's BP to be 70 's/40s. Son states that they could feel pt's pulse and it didn't seem too fast or slow, but pt wasn't having much respiratory effort. Pt's daughter was "blowing on his face" to stimulate him to breath. Paramedics arrived on scene to find pt with BP of 80/46. While in the ambulance on the way to the ER paramedics state pt became more alert, and began to carry on a reasonable conversation, and they then found his BP to be 135/60's. Pt denies chest pain. Pt's son states pt has not had any cough, fever, chills, or illness. He states pt has not been eating or drinking as much as possible, and has not been urinating as much as usual. Son states pt had a similar episode one month ago and was admitted, but nothing specific was found other than dehydration. Last week pt was admitted to [facility] for low blood pressure. Onset: Today Onset Date: 10/11/17 Duration: Improving Location: Reports: Generalized Severity: Severe Improves with: Reports: None Worsens with: Reports: None Associated Symptoms: Reports: No Other Symptoms - Related Data Allergies Allergy/AdvReac Type Severity Reaction Status Date / Time lactose Allergy Intermediate Diarrhea Verified 10/11/17 12:06 diphenhydramine Allergy Mild Confusion Verified 10/11/17 12:06 Home Meds: Home Meds Albuterol [Ventolin HFA] 2 puff INH Q4H PRN 09/19/14 [History] Carvedilol [Coreg] 6.25 mg PO BID 12/23/15 [History] Furosemide [Lasix] 20 mg PO BID 12/23/15 [History] Albuterol [Proventil Neb Soln] 2.5 mg NEB Q6HRRT PRN 02/18/16 [History] Aspirin [Halfprin] 81 mg PO DAILY 02/18/16 [History] Warfarin Sodium [Coumadin] 1.5 mg PO MOWEFR 04/03/17 [History] Acetaminophen [Acetaminophen 8 Hour] 650 mg PO Q8HR PRN 05/12/17 [History] Ipratropium/Albuterol Sulfate [IJD: DuoNeb 3.0-0.5 MG/3 ML] 3 ml INH QID [History] Nitroglycerin [Nitrostat] 0.4 mg SL ASDIRECTED PRN 05/12/17 [History] Warfarin Sodium [Jantoven] 3 mg PO SUTUTHSA 09/18/17 [History] Non-Formulary Medication [NF Drug] 1 drop EYERT QID 09/19/17 [History] Past Medical History HEENT History: Reports: Cataract, Hard of Hearing, Impaired Vision, Other (See Below) Other HEENT History: WEARS CORRECTIVE LENSES; HEARING AIDE TO R SIDE; TOP DENTURE PLATE, BOTTOM PARTIAL Cardiovascular History: Reports: Bypass, CAD, Heart Failure, Heart Valve Replacement, High Cholesterol, Hypertension, Pacemaker Other Cardiovascular History: AORTIC STENOSIS; MITRAL INSUFFICIENCY; TRICUSPID INSUFFICIENCY Respiratory History: Reports: Asthma, Pneumonia, Recurrent Gastrointestinal History: Reports: Colon Polyp, Diverticulosis, GERD Other Gastrointestinal History: HYPERMOTILITY OF INTESTINE Genitourinary History: Reports: BPH, Chronic Renal Insuffiency, Urinary Incontinence Other Genitourinary History: STAGE III Musculoskeletal History: Reports: Osteoarthritis Other Musculoskeletal History: CARPAL TUNNEL SYNDROME BILAT Neurological History: Reports: TIA Other Neuro History: head bleed s/p fall; DYSPHAGIA Psychiatric History: Reports: Depression Endocrine/Metabolic History: Reports: None Hematologic History: Reports: Anemia, Blood Transfusion(s), Iron Deficiency Other Hematologic History: ANTICOAGULATION MONITORING; MICROALBUMINURIA; HYPERKALEMIA Immunologic History: Reports: None Oncologic (Cancer) History: Reports: Colon Dermatologic History: Reports: None - Infectious Disease History Infectious Disease History: Reports: None - Past Surgical History Head Surgeries/Procedures: Reports: None HEENT Surgical History: Reports: Oral Surgery Cardiovascular Surgical History: Reports: Carotid Endarterectomy, Coronary Artery Bypass, Valve Replacement Respiratory Surgical History: Reports: Tracheostomy GI Surgical History: Reports: Colon, Colonoscopy, Colostomy Musculoskeletal Surgical History: Reports: Shoulder Surgery Social & Family History - Family History Family Medical History: Noncontributory HEENT: Reports: Cataract, Glaucoma Cardiac: Reports: Hypertension Musculoskeletal: Reports: Arthritis, Back pain, Chronic Neurological: Reports: CVA Psychiatric: Reports: Other (See Below) Other Psychiatric Family History: ALCOHOLISM Endocrine/Metabolic: Reports: Diabetes, type II Oncologic: Reports: Brain, Lung - Tobacco Use Smoking Status *Q: Unknown Ever Smoked Years of Tobacco use: 60 Packs/Tins Daily: 0.1 Used Tobacco, but Quit: No Month Tobacco Last Used: 09/14/13 Second Hand Smoke Exposure: No - Caffeine Use Caffeine Use: Reports: Other Other Caffeine Use: unknown - Alcohol Use Days Per Week of Alcohol Use: 1 Number of Drinks Per Day: 2 Total Drinks Per Week: 2 - Recreational Drug Use Recreational Drug Use: No - Living Situation & Occupation Living situation: Reports: , with Spouse Occupation: Retired ED ROS GENERAL - Review of Systems Review Of Systems: ROS reveals no pertinent complaints other than HPI. - Physical Exam Exam: See Below Exam Limited By: No Limitations General Appearance: Alert, No Apparent Distress, Other (frail elderly, chronically ill but non-toxic appearing) Eye Exam: Bilateral Eye: EOMI, Normal Inspection, PERRL Nose: Normal Inspection Throat/Mouth: Normal Lips, Normal Oropharynx, Normal Voice, No Airway Compromise , Other (dry oral membranes) Head Exam: Atraumatic, Normocephalic Neck: Normal Inspection, Supple, Non-Tender, Full Range of Motion Respiratory/Chest: No Respiratory Distress, Lungs Clear, No Accessory Muscle Use , Chest Non-Tender, Decreased Breath Sounds Cardiovascular: Regular Rate, Rhythm, No Edema, No JVD, Systolic Murmur (with mech. click) GI/Abdominal: Normal Bowel Sounds, Soft, Non-Tender, No Distention. No: Guarding, Rigid, Rebound (Male) Exam: Deferred Rectal (Males) Exam: Deferred Neuro Exam (Abbreviated): Alert, Oriented (to person and place), No Motor/ Sensory Deficits, Confused (mild confusion vs dementia) Back Exam: Normal Inspection Extremities: Normal Inspection, Non-Tender, No Pedal Edema Psychiatric: Normal Mood Skin Exam: Warm, Dry, Intact, Normal Color, No Rash EKG INTERPRETATION EKG Date: 10/11/17 Time: 12:01 Rhythm: A-Fib Rate (Beats/Min): 77 [place]: Normal P-Wave: Absent QRS: LBBB (incomplete) ST-T: Normal QT: Normal Comparison: No Change Course - Vital Signs Last Recorded V/S: Last Vital Signs Temp 36.6 C 10/11/17 12:22 Pulse 79 10/11/17 12:22 Resp 12 10/11/17 12:22 BP 150/61 H 10/11/17 12:22 Pulse Ox 95 10/11/17 12:22 - Orders/Labs/Meds Orders: Active Orders 24 hr Category Date Time Status Blood Glucose Check, Bedside [] ONETIME Care 10/11/17 11:57 Active EKG 12 Lead [EKG Documentation Completion] [] STAT Care 10/11/17 11:56 Active Peripheral IV Care [] . DIRECTED Care 10/11/17 11:57 Active CULTURE BLOOD [BC] Stat Lab 10/11/17 12:15 Results CULTURE BLOOD [BC] Stat Lab 10/11/17 12:26 Received UA W/MICROSCOPIC [URIN] Stat Lab 10/11/17 11:56 Uncollected Sodium Chloride 0.9% [Saline Flush] Med 10/11/17 11:56 Active 10 ml FLUSH ASDIRECTED PRN Blood Culture x2 Reflex Set [OM.PC] Stat Oth 10/11/17 11:56 Ordered Peripheral IV Insertion Adult [OM.PC] Stat Oth 10/11/17 11:56 Ordered Medication Orders Sodium Chloride (Saline Flush) 10 ml FLUSH ASDIRECTED PRN PRN Reason: Keep Vein Open Last Admin: 10/11/17 13:01 Dose: 10 ml Labs: Laboratory Tests 10/11/17 10/11/17 10/11/17 Range/Units 12:21 12:26 12:26 WBC 9.9 (5.0-10.0) 10^3/uL RBC 3.40 L (4.6-6.2) 10^6/uL Hgb 10.9 L D (14.0-18.0) g/dL Hct 32.6 L (40.0-54.0) % MCV 95.9 (80-100) fL MCH 32.1 (27.0-34.0) pg MCHC 33.4 (33.0-35.0) g/dL Plt Count 217 (150-450) 10^3/uL Neut % (Auto) 80.0 H (42.2-75.2) % Lymph % (Auto) 12.1 L (20.5-50.1) % [place] % (Auto) 5.7 (2-8) % Eos % (Auto) 2.0 (1.0-3.0) % Baso % (Auto) 0.2 (0.0-1.0) % PT 23.6 H D (9.0-12.0) SEC INR 2.3 H (0.9-1.2) Sodium (135-145) mmol/L Potassium (3.6-5.0) mmol/L Chloride (101-111) mmol/L Carbon Dioxide (21.0-31.0) mmol/L Anion Gap BUN (7-18) mg/dL Creatinine (0.6-1.3) mg/dL Est Cr Clr Drug Dosing mL/min Estimated GFR (MDRD) BUN/Creatinine Ratio Glucose (74-105) mg/dL POC Glucose 95 (83-110) mg/dl Lactic Acid (0.5-2.2) mmol/L Calcium (8.4-10.2) mg/dl Total Bilirubin (0.2-1.0) mg/dL AST (10-42) IU/L ALT (10-60) IU/L Alkaline Phosphatase (42-121) IU/L Troponin I (0.00-0.02) ng/ml B-Natriuretic Peptide (0-100) pg/ml Total Protein (6.7-8.2) g/dl Albumin (3.2-5.5) g/dl Globulin Albumin/Globulin Ratio 10/11/17 10/11/17 Range/Units 12:26 12:26 WBC (5.0-10.0) 10^3/uL RBC (4.6-6.2) 10^6/uL Hgb (14.0-18.0) g/dL Hct (40.0-54.0) % MCV (80-100) fL MCH (27.0-34.0) pg MCHC (33.0-35.0) g/dL Plt Count (150-450) 10^3/uL Neut % (Auto) (42.2-75.2) % Lymph % (Auto) (20.5-50.1) % [place] % (Auto) (2-8) % Eos % (Auto) (1.0-3.0) % Baso % (Auto) (0.0-1.0) % PT (9.0-12.0) SEC INR (0.9-1.2) Sodium 137 (135-145) mmol/L Potassium 3.4 L (3.6-5.0) mmol/L Chloride 106 (101-111) mmol/L Carbon Dioxide 23.0 (21.0-31.0) mmol/L Anion Gap 11.4 BUN 18 (7-18) mg/dL Creatinine 1.3 (0.6-1.3) mg/dL Est Cr Clr Drug Dosing 33.52 mL/min Estimated GFR (MDRD) 52 BUN/Creatinine Ratio 13.84 Glucose 110 H (74-105) mg/dL POC Glucose (83-110) mg/dl Lactic Acid 1.7 (0.5-2.2) mmol/L Calcium 7.5 L (8.4-10.2) mg/dl Total Bilirubin 1.0 (0.2-1.0) mg/dL AST 39 (10-42) IU/L ALT 15 (10-60) IU/L Alkaline Phosphatase 118 (42-121) IU/L Troponin I 0.07 H* (0.00-0.02) ng/ml B-Natriuretic Peptide 788 H (0-100) pg/ml Total Protein 5.9 L (6.7-8.2) g/dl Albumin 1.9 L (3.2-5.5) g/dl Globulin 4.0 Albumin/Globulin Ratio 0.48 Meds: Medications Generic Name Dose Route Start Last Admin Trade Name Freq PRN Reason Stop Dose Admin Sodium Chloride 10 ml 10/11/17 11:56 10/11/17 13:01 Saline Flush FLUSH 10 ml ASDIRECTED PRN Administration Keep Vein Open Discontinued Medications Generic Name Dose Route Start Last Admin Trade Name Freq PRN Reason Stop Dose Admin Aspirin 324 mg 10/11/17 12:57 10/11/17 13:01 Aspirin PO 10/11/17 12:58 324 mg ONETIME ONE Administration - Radiology Interpretation Free Text/Narrative:: CXR: pacer & leads, stable chronic changes, no acute process; see Rad. report. Departure - Departure Time of Disposition: 13:21 Disposition: Home, Self-Care 01 Condition: Serious Clinical Impression: Acute [id number] myocardial infarction, Decreased level of consciousness - Discharge Information Forms: ED Department Discharge, Interfacility Transfer EMTALA - My Orders Last 24 Hours: My Active Orders 10/11/17 11:56 EKG 12 Lead [EKG Documentation Completion] [RC] STAT UA W/MICROSCOPIC [URIN] Stat Sodium Chloride 0.9% [Saline Flush] 10 ml FLUSH ASDIRECTED PRN Blood Culture x2 Reflex Set [OM.PC] Stat Peripheral IV Insertion Adult [OM.PC] Stat 10/11/17 11:57 Blood Glucose Check, Bedside [RC] ONETIME Peripheral IV Care [RC] . DIRECTED 10/11/17 12:15 CULTURE BLOOD [BC] Stat 10/11/17 12:26 CULTURE BLOOD [BC] Stat - Assessment/Plan Last 24 Hours: My Active Orders 10/11/17 11:56 EKG 12 Lead [EKG Documentation Completion] [RC] STAT UA W/MICROSCOPIC [URIN] Stat Sodium Chloride 0.9% [Saline Flush] 10 ml FLUSH ASDIRECTED PRN Blood Culture x2 Reflex Set [OM.PC] Stat Peripheral IV Insertion Adult [OM.PC] Stat 10/11/17 11:57 Blood Glucose Check, Bedside [RC] ONETIME Peripheral IV Care [RC] . DIRECTED 10/11/17 12:15 CULTURE BLOOD [BC] Stat 10/11/17 12:26 CULTURE BLOOD [BC] Stat
[2017-10-11] MEDS ORDERED: Aspirin 81 MG Tab.Chew PO ONE (12:57)
--- NOTE | 2017-10-11 13:03 | CR ---
Clinical history: 87-year-old hypertensive male with a syncopal episode. Interpretation: Sternotomy wires, external pvc monitor leads, and cardiac pacemaker (leads intact and unchanged s loraine 19 September 2017). Normal cardiac silhouette without new cephalization of vascular flow, signs of alveolar edema or depe ndent effusion. No new lung mass, hilar lymphadenopathy or focal lobar pneumonia. No atelectasis/collapse or pneumoth orax. CONCLUSION: No acute new cardiopulmonary abnormality since 19 September 2017 exam.
[2017-10-11 13:23] VITALS: BP 117/60
== END 2017-10-11 13:52 | disposition home or self-care (01) ==
LOC: DL.ED 11:56
DX: I21.4 Non-ST elevation (NSTEMI) myocardial infarction (principal); I13.0 Hypertensive heart and chronic kidney disease with heart failure and stage 1 through stage 4 chronic kidney disease, or unspecified chronic kidney disease; N18.3 Chronic kidney disease, stage 3 (moderate); I50.9 Heart failure, unspecified; I25.10 Atherosclerotic heart disease of native coronary artery without angina pectoris; J45.909 Unspecified asthma, uncomplicated; E78.00 Pure hypercholesterolemia, unspecified; K21.9 Gastro-esophageal reflux disease without esophagitis; F32.9 Major depressive disorder, single episode, unspecified; Z79.01 Long term (current) use of anticoagulants; Z95.1 Presence of aortocoronary bypass graft; Z95.2 Presence of prosthetic heart valve; Z95.0 Presence of cardiac pacemaker; Z79.82 Long term (current) use of aspirin; Z79.899 Other long term (current) drug therapy; Z91.011 Allergy to milk products; Z88.8 Allergy status to other drugs, medicaments and biological substances
CPT/HCPCS: 36415; 71045; 80053; 82962; 83605; 83880; 84484; 85025; 85610; 87040; 93005; 93010; 99285; A9270; J7050

== ENCOUNTER 2017-10-23 13:44 | Emergency (ER) | payer MEDICARE, OTHER ==
--- NOTE | 2017-10-23 14:14 | EDM.PDOC ---
ED HPI GENERAL MEDICAL PROBLEM - General Stated Complaint: [id number] FROM CLINIC BLOOD PRESSURE LOW Time Seen by Provider: 10/23/17 13:55 Source of Information: Reports: Patient History Limitations: Reports: No Limitations - History of Present Illness INITIAL COMMENTS - FREE TEXT/NARRATIVE: This 87 yo male patient was sent to the ED by cardiology prior to being seen due to altered mentation and not responding normally. The nursing staff reported that his oxygen saturation was in the low 80's. Upon arrival in the ED , the patient would open his eyes to verbal stimuli, but was unable to answer questions. Onset: Today Duration: Minutes: Location: Reports: Generalized Quality: Reports: Other Severity: Severe Improves with: Reports: None Worsens with: Reports: None Associated Symptoms: Reports: Syncope - Related Data Allergies Allergy/AdvReac Type Severity Reaction Status Date / Time lactose Allergy Intermediate Diarrhea Verified 10/23/17 14:13 diphenhydramine Allergy Mild Confusion Verified 10/23/17 14:13 Home Meds: Home Meds Albuterol [Ventolin HFA] 2 puff INH Q4H PRN 09/19/14 [History] Carvedilol [Coreg] 6.25 mg PO BID 12/23/15 [History] Furosemide [Lasix] 20 mg PO BID 12/23/15 [History] Albuterol [Proventil Neb Soln] 2.5 mg NEB Q6HRRT PRN 02/18/16 [History] Aspirin [Halfprin] 81 mg PO DAILY 02/18/16 [History] Warfarin Sodium [Coumadin] 1.5 mg PO MOWEFR 04/03/17 [History] Acetaminophen [Acetaminophen 8 Hour] 650 mg PO Q8HR PRN 05/12/17 [History] Ipratropium/Albuterol Sulfate [IJD: DuoNeb 3.0-0.5 MG/3 ML] 3 ml INH QID [History] Nitroglycerin [Nitrostat] 0.4 mg SL ASDIRECTED PRN 05/12/17 [History] Warfarin Sodium [Jantoven] 3 mg PO SUTUTHSA 09/18/17 [History] Non-Formulary Medication [NF Drug] 1 drop EYERT QID 09/19/17 [History] Magnesium Oxide 400 mg PO DAILY 10/23/17 [History] Midodrine 2.5 mg PO BID 10/23/17 [History] Potassium Chloride [Klor-Con M20] 20 meq PO BID 10/23/17 [History] Past Medical History HEENT History: Reports: Cataract, Hard of Hearing, Impaired Vision, Other (See Below) Other HEENT History: WEARS CORRECTIVE LENSES; HEARING AIDE TO R SIDE; TOP DENTURE PLATE, BOTTOM PARTIAL Cardiovascular History: Reports: Bypass, CAD, Heart Failure, Heart Valve Replacement, High Cholesterol, Hypertension, Pacemaker Other Cardiovascular History: AORTIC STENOSIS; MITRAL INSUFFICIENCY; TRICUSPID INSUFFICIENCY Respiratory History: Reports: Asthma, Pneumonia, Recurrent Gastrointestinal History: Reports: Colon Polyp, Diverticulosis, GERD Other Gastrointestinal History: HYPERMOTILITY OF INTESTINE Genitourinary History: Reports: BPH, Chronic Renal Insuffiency, Urinary Incontinence Other Genitourinary History: STAGE III Musculoskeletal History: Reports: Osteoarthritis Other Musculoskeletal History: CARPAL TUNNEL SYNDROME BILAT Neurological History: Reports: TIA Other Neuro History: head bleed s/p fall; DYSPHAGIA Psychiatric History: Reports: Depression Endocrine/Metabolic History: Reports: None Hematologic History: Reports: Anemia, Blood Transfusion(s), Iron Deficiency Other Hematologic History: ANTICOAGULATION MONITORING; MICROALBUMINURIA; HYPERKALEMIA Immunologic History: Reports: None Oncologic (Cancer) History: Reports: Colon Dermatologic History: Reports: None - Infectious Disease History Infectious Disease History: Reports: None - Past Surgical History Head Surgeries/Procedures: Reports: None HEENT Surgical History: Reports: Oral Surgery Cardiovascular Surgical History: Reports: Carotid Endarterectomy, Coronary Artery Bypass, Valve Replacement Respiratory Surgical History: Reports: Tracheostomy GI Surgical History: Reports: Colon, Colonoscopy, Colostomy Musculoskeletal Surgical History: Reports: Shoulder Surgery Social & Family History - Family History Family Medical History: Noncontributory HEENT: Reports: Cataract, Glaucoma Cardiac: Reports: Hypertension Musculoskeletal: Reports: Arthritis, Back pain, Chronic Neurological: Reports: CVA Psychiatric: Reports: Other (See Below) Other Psychiatric Family History: ALCOHOLISM Endocrine/Metabolic: Reports: Diabetes, type II Oncologic: Reports: Brain, Lung - Tobacco Use Smoking Status *Q: Unknown Ever Smoked Years of Tobacco use: 60 Packs/Tins Daily: 0.1 Used Tobacco, but Quit: No Month Tobacco Last Used: 09/14/13 Second Hand Smoke Exposure: No - Caffeine Use Caffeine Use: Reports: Other Other Caffeine Use: unknown - Alcohol Use Days Per Week of Alcohol Use: 1 Number of Drinks Per Day: 2 Total Drinks Per Week: 2 - Recreational Drug Use Recreational Drug Use: No - Living Situation & Occupation Living situation: Reports: , with Spouse Occupation: Retired ED ROS GENERAL - Review of Systems Review Of Systems: ROS reveals no pertinent complaints other than HPI. ED EXAM, GENERAL - Physical Exam Exam: See Below Exam Limited By: No Limitations General Appearance: Alert, WD/WN, No Apparent Distress, Thin Eye Exam: Bilateral Eye: EOMI, Normal Inspection, PERRL Ears: Normal External Exam, Normal Canal, Hearing Grossly Normal, Normal TMs Nose: Normal Inspection, Normal Mucosa, No Blood Throat/Mouth: Normal Inspection, Normal Lips, Normal Teeth, Normal Gums, Normal Oropharynx, Normal Voice, No Airway Compromise Head: Atraumatic, Normocephalic Neck: Normal Inspection, Supple, Non-Tender, Full Range of Motion Respiratory/Chest: No Respiratory Distress, Lungs Clear, Normal Breath Sounds, No Accessory Muscle Use, Chest Non-Tender Cardiovascular: Normal Peripheral Pulses, Regular Rate, Rhythm, No Edema, No Gallop, No JVD, No Murmur, No Rub GI/Abdominal: Normal Bowel Sounds, Soft, Non-Tender, No Organomegaly, No Distention, No Abnormal Bruit, No Mass (Male) Exam: Deferred Rectal (Males) Exam: Deferred Back Exam: Normal Inspection, Full Range of Motion, NT Extremities: Normal Inspection, Normal Range of Motion, Non-Tender, Normal Capillary Refill, No Pedal Edema Neurological: Alert, Oriented, CN II-XII Intact, Normal Cognition Psychiatric: Normal Affect, Normal Mood Skin Exam: Warm, Dry, Intact, Normal Color, No Rash Lymphatic: No Adenopathy Course - Vital Signs Last Recorded V/S: Last Vital Signs Temp 36.4 C 10/23/17 14:16 Pulse 60 10/23/17 14:16 Resp 10 L 10/23/17 14:16 BP 115/60 10/23/17 14:16 Pulse Ox 98 10/23/17 14:16 - Orders/Labs/Meds Orders: Active Orders 24 hr Category Date Time Status EKG Documentation Completion [RC] URGENT Care 10/23/17 13:59 Ordered CULTURE BLOOD [BC] Stat Lab 10/23/17 14:02 Ordered Blood Culture x2 Reflex Set [OM.PC] Stat Oth 10/23/17 14:02 Ordered Labs: Laboratory Tests 10/23/17 10/23/17 10/23/17 Range/Units 14:04 14:04 14:04 WBC 8.6 (5.0-10.0) 10^3/uL RBC 3.58 L (4.6-6.2) 10^6/uL Hgb 11.3 L (14.0-18.0) g/dL Hct 35.4 L (40.0-54.0) % MCV 98.9 D (80-100) fL MCH 31.6 (27.0-34.0) pg MCHC 31.9 L (33.0-35.0) g/dL Plt Count 253 (150-450) 10^3/uL Neut % (Auto) 51.1 (42.2-75.2) % Lymph % (Auto) 35.7 (20.5-50.1) % [place] % (Auto) 8.1 H (2-8) % Eos % (Auto) 4.5 H (1.0-3.0) % Baso % (Auto) 0.6 (0.0-1.0) % Sodium 139 (135-145) mmol/L Potassium 5.1 H D (3.6-5.0) mmol/L Chloride 112 H (101-111) mmol/L Carbon Dioxide 21.0 (21.0-31.0) mmol/L Anion Gap 11.1 BUN 12 (7-18) mg/dL Creatinine 1.3 (0.6-1.3) mg/dL Est Cr Clr Drug Dosing 33.77 mL/min Estimated GFR (MDRD) 52 BUN/Creatinine Ratio 9.23 Glucose 111 H (74-105) mg/dL Lactic Acid 2.0 (0.5-2.2) mmol/L Calcium 8.0 L (8.4-10.2) mg/dl Total Bilirubin 0.7 (0.2-1.0) mg/dL AST 47 H (10-42) IU/L ALT 17 (10-60) IU/L Alkaline Phosphatase 115 (42-121) IU/L Troponin I 0.02 (0.00-0.02) ng/ml Total Protein 6.1 L (6.7-8.2) g/dl Albumin 2.0 L (3.2-5.5) g/dl Globulin 4.1 Albumin/Globulin Ratio 0.49 Urine Color (YELLOW) Urine Appearance (CLEAR) Urine pH (5.0-9.0) Ur Specific [place] (1.005-1.030) Urine Protein (NEGATIVE) Urine Glucose (UA) (NEGATIVE) Urine Ketones (NEGATIVE) Urine Occult Blood (NEGATIVE) Urine Nitrite (NEGATIVE) Urine Bilirubin (NEGATIVE) Urine Urobilinogen (0.2-1.0) mg/dL Ur Leukocyte Esterase (NEGATIVE) Urine RBC /HPF Urine WBC (0-5/HPF) /HPF Ur Epithelial Cells /HPF Urine Bacteria (0-FEW/HPF) /HPF 10/23/17 Range/Units 14:46 WBC (5.0-10.0) 10^3/uL RBC (4.6-6.2) 10^6/uL Hgb (14.0-18.0) g/dL Hct (40.0-54.0) % MCV (80-100) fL MCH (27.0-34.0) pg MCHC (33.0-35.0) g/dL Plt Count (150-450) 10^3/uL Neut % (Auto) (42.2-75.2) % Lymph % (Auto) (20.5-50.1) % [place] % (Auto) (2-8) % Eos % (Auto) (1.0-3.0) % Baso % (Auto) (0.0-1.0) % Sodium (135-145) mmol/L Potassium (3.6-5.0) mmol/L Chloride (101-111) mmol/L Carbon Dioxide (21.0-31.0) mmol/L Anion Gap BUN (7-18) mg/dL Creatinine (0.6-1.3) mg/dL Est Cr Clr Drug Dosing mL/min Estimated GFR (MDRD) BUN/Creatinine Ratio Glucose (74-105) mg/dL Lactic Acid (0.5-2.2) mmol/L Calcium (8.4-10.2) mg/dl Total Bilirubin (0.2-1.0) mg/dL AST (10-42) IU/L ALT (10-60) IU/L Alkaline Phosphatase (42-121) IU/L Troponin I (0.00-0.02) ng/ml Total Protein (6.7-8.2) g/dl Albumin (3.2-5.5) g/dl Globulin Albumin/Globulin Ratio Urine Color Yellow (YELLOW) Urine Appearance Cloudy (CLEAR) Urine pH 5.5 (5.0-9.0) Ur Specific [place] 1.015 (1.005-1.030) Urine Protein 30 H (NEGATIVE) Urine Glucose (UA) Negative (NEGATIVE) Urine Ketones Negative (NEGATIVE) Urine Occult Blood Trace-intact H (NEGATIVE) Urine Nitrite Negative (NEGATIVE) Urine Bilirubin Negative (NEGATIVE) Urine Urobilinogen 0.2 (0.2-1.0) mg/dL Ur Leukocyte Esterase Moderate H (NEGATIVE) Urine RBC 0-5 /HPF Urine WBC >100 H (0-5/HPF) /HPF Ur Epithelial Cells Occasional /HPF Urine Bacteria Many H (0-FEW/HPF) /HPF Meds: Medications Discontinued Medications Generic Name Dose Route Start Last Admin Trade Name Freq PRN Reason Stop Dose Admin Sodium Chloride 1,000 mls @ 999 mls/hr 10/23/17 15:05 10/23/17 15:10 Normal Saline IV 10/23/17 16:05 999 mls/hr .BOLUS ONE Administration Departure - Departure Time of Disposition: 16:14 Disposition: Home, Self-Care 01 Condition: Fair Clinical Impression: Syncope Qualifiers: Syncope type: unspecified Qualified Code(s): R55 - Syncope and collapse - Discharge Information Instructions: Vasovagal Syncope, Adult Forms: ED Department Discharge Care Plan Goals: The patient and family were advised of the examination, lab, EKG, x-ray and CT results during the visit. The patient was encouraged to continue to monitor his symptoms. If the patient has any additional symptoms or concerns, the patient should follow-up with his primary care facility or return to the emergency department. - My Orders Last 24 Hours: My Active Orders 10/23/17 13:59 EKG Documentation Completion [RC] URGENT 10/23/17 14:02 CULTURE BLOOD [BC] Stat Blood Culture x2 Reflex Set [OM.PC] Stat - Assessment/Plan Last 24 Hours: My Active Orders 10/23/17 13:59 EKG Documentation Completion [RC] URGENT 10/23/17 14:02 CULTURE BLOOD [BC] Stat Blood Culture x2 Reflex Set [OM.PC] Stat
[2017-10-23 14:20] VITALS: BP 115/60
--- NOTE | 2017-10-23 14:28 | CT ---
Clinical history: 87-year-old male with altered mentation who has a history of clinical orthopnea and chronic heart failure. Recent CT scan of the head 18 September 2017 revealed "acute sinus disease, mul tiple chronic intracranial abnormalities but no acute intracranial pathology". Reevaluate please. Scan technique: Volume acquisition of data emergency unenhanced CT scan of the head and brain obtaine d with the patient lying supine on the Siemens multi slice CT scanner [place], [place]. All data archived in the PACS system for storage and study. Interpretation: 1. Bilateral thalamic infarcts/extensive periventricular white matter ischemia...chronic and unchange d since images 18 September 2017. 2. Generalized age-appropriate atrophy with underlying mirror-image normal ventricular system. Physiologic midline pineal and symmetric choroid plexus calcifications. 3. *No new signs of acute intracerebral/intraventricular/subarachnoid bleed. No abnormal extracerebra l/intracranial epidural or subdural hematomas. 4. Age-appropriate atrophy but cerebellum and brainstem otherwise unremarkable. 5. No current signs of pansinusitis. 6. No supratentorial or posterior fossa mass lesion. No hydrocephalus. CONCLUSION: Chronic multi-infarct ischemic disease (severe) unchanged since [address] exam[address] No sign of acute intracranial bleed.
--- NOTE | 2017-10-23 14:29 | CR ---
Clinical history: 87-year-old male with altered mentation. No change in CT scan of the head since 18 September 2017. Interpretation: AP chest radiograph unchanged since October 2017 exam. Sternotomy wires, external magnesium mill operator leads, and cardiac pacemaker (leads intact and unchanged). Normal cardiac silhouette without cephalization of vascular flow, alveolar edema or dependent effusio n. Chronic retrocardiac atelectasis left base. No new lung mass or focal lobar pneumonia. Chronic severe arthritic changes right shoulder. No pneumothorax.
[2017-10-23] MEDS ORDERED: Sodium Chloride 0.9% 1,000 ML IV ONE (15:05)
--- NOTE | 2017-10-25 08:20 | EKG ---
10/23/2017 - YOKO CROWE - This 12-lead EKG shows a normal sinus rhythm with a ventricular rate of 60. There is an incomplete left bundle-branch block. This EKG is unchanged when compared to a previous EKG dated 09/18/2017. [facility] /[id number] MTDD
== END 2017-10-23 16:24 | disposition home or self-care (01) ==
LOC: DL.ED 13:44
DX: R55 Syncope and collapse (principal); I13.0 Hypertensive heart and chronic kidney disease with heart failure and stage 1 through stage 4 chronic kidney disease, or unspecified chronic kidney disease; I50.9 Heart failure, unspecified; N18.9 Chronic kidney disease, unspecified; E78.00 Pure hypercholesterolemia, unspecified; Z91.011 Allergy to milk products; Z88.8 Allergy status to other drugs, medicaments and biological substances; Z79.899 Other long term (current) drug therapy; Z79.82 Long term (current) use of aspirin
CPT/HCPCS: 36415; 70450; 71045; 80053; 81001; 82962; 83605; 84484; 85025; 87040; 93005; 93010; 96360; 99285; J7030; 99284